=== PATIENT | female | born 1975 | race African-American/Black ===

== ENCOUNTER 2016-12-03 11:21 | Inpatient (IN) | payer MEDICARE, OTHER ==
--- NOTE | ~2016-12-03 | CR72 ---
[facility] A Service of [facility] & [facility] RADIOLOGY TEXT RESULTS PATIENT: DAVONTE HUBER LOCATION: [address] : [birth year] UNIT #: [id number] AGE: [address]: Quincy Neely MD SEX: F ORDER DR: [id number] [facility] [address] [place], [place] [address] [id number] I MR#: [id number] Acc #: [id number] NAME: DAVONTE HUBER : 1975 SEX: F STUDY DATE/TIME: 12/05/2016 4:58 UNIT: [facility] ROOM: [facility] STUDY DESCRIPTION: CR Chest Single View Portable Attending Physician: May Ruiz M.D. Ordering Physician: Sofiya Pineda M.D. Primary Care Physician: George Huynh M.D. MEDICAL IMAGING REPORT This report is preliminary unless electronic signature is present EXAM AP portable chest DATE: 12/05/2016 at 04:58 HISTORY 41-year-old female with shortness of breath and lethargy, on the ventilator. Symptoms have been presents since 12/03/2016 COMPARISON AP portable chest 12/04/2016 FINDINGS Low-volume inspiration. Suspected mild right basilar atelectasis. No dense consolidation. No definite pleural effusion or pneumothorax. ET tube, right chest tube, right subclavian approach central line appear unchanged in position. Heart size is stable. Discontinuous presumed VP PLATFORMS shunt in the right lower neck, unchanged from multiple prior studies. Thoracolumbar scoliosis with bilateral Bryant charli fusion changes. IMPRESSION 1. Development of mild right basilar atelectasis or infiltrate. No dense consolidations. 2. No visible pneumothorax. Dictated by... Iveth Goyal M.D. THIS IS AN ELECTRONICALLY VERIFIED REPORT Ievth Goyal M.D. at 12/06/2016 9:59 PM [facility]/martin TD: 12/05/2016 08:35 [facility] A Service of [facility] & [facility] RADIOLOGY TEXT RESULTS PATIENT: DAVONTE HUBER LOCATION: [facility]3-14 : [birth year] UNIT #: [id number] AGE: [address]: Quincy Neely MD SEX: F ORDER DR: MAL #: [id number] MEDICAL IMAGING REPORT Page 1 of 1 COPY
--- NOTE | ~2016-12-03 | FU ---
[facility] Nutrition Therapy DATE: 12/09/16 Patient: DAVONTE HUBER Physician: KASSIE Address: [address] [place] [address] Room/Bed: [address], Zip: [place] [address] Admit Date: 12/03/16 Date of : [birth year] Height: 4 9 Weight: 44 20 NUTRITION MONITORING/FOLLOW-UP: Reason: Enteral nutrition follow-up Admitting Dx: 41 y/o female admitted with acute renal failure, weakness, sepsis Anthropometrics: Ht: 57", admission wt: 28.5 kg, current wt: 20 kg (12/09, accurate?), BMI: 13.6 (underweight; based on admission wt), adjusted IBW: 38.7, 74% IBW Labs: Glucose 137, AST 163 (12/05), ALT 99 (12/05), lytes WNL Meds: Thiamine HCL, MVI with minerals, Bisacodyl, Mg/K, Pepcid, Vitamin D, Nacl I&O's: 1283/2400, last BM 12/03 (diarrhea) Skin: R chest tube and PEG sites, edema BUE 1+ Estimated Nutrition Needs: 2064-1206 kcals per day (35-40 kcals/kg adjusted IBW) 58-77 g protein per day (1.5-2.0 g/kg adjusted IBW) Fluids consistent with kcal needs or per MD Assessment: Chart reviewed, events noted. Patient failed wean yesterday, remains intubated, not following commands but does withdraw to pain, still working on DNR status. [place] referral in place. Patient is receiving enteral nutrition via PEG with Jevity 1.5 @ 40 ml/hr, 77% goal volume given past 24 hours per pump history. RN unsure if patient is receiving daily Prostat- RN to check chart to see once MD finished with it. See nutrition goals and dx with recs as stated below, will continue to follow hospital course. Dx: Severe PCM r/t increased nutrient needs, PMH AEB BMI 13.6, 74% IBW, 21% weight loss in 6 months - ACTIVE Intervention: Add daily Prostat if not ordered, continue current EN regimen Monitoring, Evaluation and Goals: 1. EN to provide > 80% goal volume x 24 hrs - IN PROGRESS (EN provided 77% past 24 hrs) 2. Improvement in labs - MET 3. Prevent unintentional weight loss/promote gradual gain - NOT MET, IN PROGRESS 4. Skin WNL - MET New goals: 1. EN to provide > 80% goal volume x 24 hrs. [facility] Nutrition Therapy DATE: 12/09/16 Patient: DAVONTE HUBER Physician: KASSIE Address: [address] [place] [address] Room/Bed: [address], Zip: [place] [address] Admit Date: 12/03/16 Date of : [birth year] Height: 4 9 Weight: 44 20 2. Gradual weight gain towards a healthy BMI range. 3. Glucose, lytes will remain WNL. Recommendations: 1. Continue current enteral nutrition via PEG: Jevity 1.5 @ 40 ml/hr + 30 ml daily Prostat. Please order Prostat and give daily per tube if not ordered, as the patient needs this to meet increased protein needs. This nutrition regimen provides 1540 kcals, 76 g protein and 730 ml water. 2. If extubated advance to PO diet per LAB INSTRUCTOR only, continue enteral feeds until PO intake is consistently > 60% of meals. RD will follow to reassess enteral nutrition needs if PO diet is started. 3. Please obtain accurate weight and re-weigh q 3 days for monitoring purposes, as the patient is underweight. 4. Severe protein calorie malnutrition previously diagnosed by RD. Status: Moderate nutrition risk Respectfully, Tiffanie Cueto, DELMAR, LD [facility] cc: client file
--- NOTE | ~2016-12-03 | CR72 ---
[facility] A Service of [facility] & [facility] RADIOLOGY TEXT RESULTS PATIENT: DAVONTE HUBER LOCATION: [address] : [birth year] UNIT #: [id number] AGE: [address]: PILLO RUIZ MD SEX: F ORDER DR: [id number] [facility] [address] [place], [place] [address] [id number] I MR#: [id number] Acc #: [id number] NAME: DAVONTE HUBER : 1975 SEX: F STUDY DATE/TIME: 12/04/2016 12:33 UNIT: [facility] ROOM: [facility] STUDY DESCRIPTION: CR Chest Single View Portable Attending Physician: Pillo Ruiz M.D. Ordering Physician: Sofiya Pineda M.D. Primary Care Physician: George Huynh M.D. MEDICAL IMAGING REPORT This report is preliminary unless electronic signature is present EXAM Single view of the chest dated 12/04/2016 at 1233 hours COMPARISON Single view chest dated 12/04/2016 0352 hours. HISTORY Shortness of air for 2 days, weakness. SEMI. FINDINGS Single view of the chest was obtained. Patient rotation limits evaluation. Previously noted right mild pneumothorax is again noted and it appears to be slightly worse. It is an expiratory film. There is some partial collapse of the underlying right lung. No chest tubes are seen. The right subclavian approach catheter is probably in the region of the SVC. Patient rotation limits evaluation. Repeat x-ray with adequate positioning can help with further characterization. Left lung is probably well-aerated. Stable heart. Dictated by... Gabriel Diop M.D. THIS IS AN ELECTRONICALLY VERIFIED REPORT Gabriel Diop M.D. at 12/05/2016 3:22 PM CPR/aa TD: 12/04/2016 14:32 JOB #: [id number] MEDICAL IMAGING REPORT Page 1 of 1 COPY
--- NOTE | ~2016-12-03 | CT4 ---
[facility] A Service of [facility] & [facility] RADIOLOGY TEXT RESULTS PATIENT: DAVONTE HUBER LOCATION: [address] : [birth year] UNIT #: [id number] AGE: [address]: Adalid Beard MD SEX: F ORDER DR: [id number] [facility] [address] [place], [place] [address] [id number] I MR#: [id number] Acc #: [id number] NAME: DAVONTE HUBER : 1975 SEX: F STUDY DATE/TIME: 12/03/2016 14:39 UNIT: [facility] ROOM: [facility] STUDY DESCRIPTION: CT Abd and Pelv Wo Cont Attending Physician: May Ruiz M.D. Ordering Physician: Alonzo Arreola M.D. Primary Care Physician: George Huynh M.D. MEDICAL IMAGING REPORT This report is preliminary unless electronic signature is present EXAM CT of abdomen and pelvis without IV contrast. COMPARISON May 26, 2011. INDICATION 41-year-old female with diarrhea for 4 days. Sepsis. TECHNIQUE This CT exam was performed with one or more of the following radiation dose reduction techniques: automatic exposure control, adjustment of mA and/or kV according to patient size, and iterative reconstruction. FINDINGS Axial CT imaging of the abdomen and pelvis was performed without IV contrast. Coronal and sagittal reformats were constructed. Lack of IV contrast limits evaluation of adenopathy, vasculature and viscera. There is marked osteopenia with stable thoracolumbar scoliosis. Thoracolumbar stabilization rods are incompletely included. There are associated cerclage wires at multiple levels. No evidence of hardware complication is seen. Stable chronic dysmorphic appearance of the right femoral head. No evidence of hip dislocation. No acute fractures or suspicious osseous lesions. Lumbar spine has an appearance most consistent with longstanding immobility. Patient is likely not weightbearing. As compared to April 2011, there are increased bronchoalveolar and tree-in-bud opacities in the right middle and lower lobes concerning for possible aspiration and/or bronchopneumonia. There are more faint tree-in-bud ground-glass opacities in the posterior basilar segment left lower lobe. Ongoing aspiration cannot be excluded. Evaluation of the intraabdominal contents is limited by lack of IV and oral contrast and lack of mesenteric STS. [facility] A Service of [facility] & [facility] RADIOLOGY TEXT RESULTS PATIENT: DAVONTE HUBER LOCATION: [facility]3-14 : [birth year] UNIT #: [id number] AGE: [address]: Adalid Beard MD SEX: F ORDER DR: santi. There is a percutaneous gastrostomy tube versus percutaneous jejunostomy tube. This is actually favored to be within the stomach. Correlation with the patient's procedural history is recommended. There is no evidence of mechanical bowel obstruction. There is a large colonic stool burden with gaseous distension of the transverse colon. Rectal tube is in place. Urinary bladder is fluid distended, but otherwise, unremarkable. Ventriculoperitoneal shunt is incompletely imaged. Shunt tubing terminates in the left abdomen and has migrated from May 26, 2011. No convincing evidence of CSF-shyam on the current exam. Gallbladder is fluid distended. No convincing evidence of acute cholecystitis is seen on this exam. The pancreas is not well visualized. Similarly the spleen is not well seen but is not favored to be present and diminutive in size. There is a large right-sided renal cyst measuring up to approximately 3.5 cm. There are bilateral nonobstructive renal calculi. No convincing evidence of ureteral calculus is seen although the ureters are well evaluated on this exam. Appears to be thickening of the sigmoid colon just above the rectal tube. Abdominal aorta is not well visualized on this exam. Similarly evaluation for adenopathy is limited. No evidence of a pneumoperitoneum or pneumatosis intestinalis on the current exam. IMPRESSION 1. Markedly limited evaluation of the abdomen and pelvis due to lack of IV and oral contrast as well as lack of mesenteric fat and streak artifact from thoracolumbar spinal hardware. The abdominal aorta, pancreas, adrenal glands, spleen, uterus, adnexa are not well evaluated. Evaluation for adenopathy is also limited. 2. Distension of the gallbladder without convincing evidence of acute cholecystitis. 3. Bilateral nonobstructive renal calculi. No evidence of obstructive uropathy is seen on this exam again, although evaluation of the ureters is limited. No evidence of ureteral calculus. 4. Marked fluid distension of urinary bladder. Consider Thomson catheterization. 5. Rectal tube in place with thickening of the upstream sigmoid colon, possibly reactive but an acute colitis cannot be excluded. There is otherwise a large colonic stool burden without evidence of mechanical bowel obstruction. 6. Findings most consistent with bronchopneumonia in the right middle and lower lobes as well as tree-in-bud opacity seen in the left lower lobe. Ongoing aspiration cannot be excluded. No evidence of pleural effusion. 7. Percutaneous enteric tube is noted, likely within the stomach but conceivably this could represent a percutaneous jejunostomy. Again, abdominal contents are difficult to evaluate on this study. If detailed evaluation of the bowel is desired, 1 could consider placing an NG tube and administering contrast to further characterize the bowel. Also, if definitive evaluation of the remainder of the abdomen and pelvis is desired, IV contrast should be administered. 8. Marked scoliosis of the thoracolumbar spine. No evidence of spinal STS. [facility] A Service of [facility] RADIOLOGY TEXT RESULTS PATIENT: DAVONTE HUBER LOCATION: [facility] CICCU3-14 : [birth year] UNIT #: [id number] AGE: [address]: Adalid Beard MD SEX: F ORDER DR: stabilization hardware complication. 9. REPOSSESSION AGENT shunt is incompletely imaged. No convincing evidence of CSF-shyam is seen. Dictated by... Christiano Rush M.D. THIS IS AN ELECTRONICALLY VERIFIED REPORT Christiano Rush M.D. at 12/07/2016 4:30 PM Yusuf TD: 12/03/2016 16:12 JOB #: [id number] MEDICAL IMAGING REPORT Page 1 of 1 COPY
--- NOTE | ~2016-12-03 | CR72 ---
[facility] A Service of [facility] & [facility] RADIOLOGY TEXT RESULTS PATIENT: DAVONTE HUBER LOCATION: [address] : [birth year] UNIT #: [id number] AGE: [address]: PILLO RUIZ MD SEX: F ORDER DR: [id number] [facility] [address] [place], [place] [address] [id number] I MR#: [id number] Acc #: [id number] NAME: DAVONTE HUBER : 1975 SEX: F STUDY DATE/TIME: 12/04/2016 16:32 UNIT: [facility] ROOM: [facility] STUDY DESCRIPTION: CR Chest Single View Portable Attending Physician: Pillo Ruiz M.D. Ordering Physician: Sofiya Pineda M.D. Primary Care Physician: George Huynh M.D. MEDICAL IMAGING REPORT This report is preliminary unless electronic signature is present EXAM Portable chest HISTORY Pneumothorax. Chest tube placement. FINDINGS Right chest tube has been placed since earlier today and the right pneumothorax has been evacuated. The chest tube tip overlies the right apex. Remainder of the chest is stable. Low lung volumes. No focal infiltrates. Dictated by... Paresh Hall M.D. THIS IS AN ELECTRONICALLY VERIFIED REPORT Paresh Hall M.D. at 12/04/2016 10:59 PM DFL/psc TD: 12/04/2016 20:32 JOB #: [id number] MEDICAL IMAGING REPORT Page 1 of 1 COPY
--- NOTE | ~2016-12-03 | EKG ---
PATIENT: DAVONTE HUBER UNIT #: [id number] Ventricular Rate: 100 BPM Atrial Rate: 100 BPM P-R Interval: 164 ms QRS Duration: 78 ms Q-T Interval: 316 ms QTC Calculation(Bezet): 407 ms P Lund: 19 degrees Calculated R Lund: 65 degrees Calculated T Lund: 7 degrees Diagnosis Line: Normal sinus rhythm Diagnosis Line: Normal ECG Diagnosis Line: When compared with ECG of 21-MAY-2016 02:56, Diagnosis Line: rate slower Diagnosis Line: Confirmed by DORIS NOEL MD ([id number]) on Diagnosis Line: 12/04/2016 8:51:51 AM INTERPRETING MD: JOHAN
--- NOTE | ~2016-12-03 | OR ---
Unit #: [id number] #: [id number] Patient: DAVONTE HUBER [id number] [address] [place], [place] [address] [id number] I MR#: [id number] NAME: DAVONTE HUBER ROOM: [facility] Date of Procedure: 12/07/2016 Admission Date: 12/03/2016 Surgeon: Davy Ruiz M.D. : 1975 Attending Physician: Adalid Beard M.D. Primary Care Physician: George Huynh M.D. PROCEDURE OPERATIVE NOTE PROCEDURE PERFORMED Diagnostic and therapeutic bronchoscopy with bronchial washing. INDICATION FOR PROCEDURE Complete right lung collapse and mucus plug. PREOPERATIVE DIAGNOSES 1. Right-sided pneumothorax. 2. Pneumonia. 3. Respiratory distress. FINDINGS Large, thin, orangish mucus plug in the right main bronchus which was flushed and aspirated with normal saline flushes. PREMEDICATION None. DESCRIPTION OF PROCEDURE An informed consent was obtained from the medical power of intertype operator after explaining the benefit and risk of this procedure. The bronchoscope was advanced through the ET tube and immediately into the right main bronchus. Next, 10 mL of 1% lidocaine was instilled and then bronchoscope was wedged at the level of the right main bronchus and multiple normal saline flushes were given and then a large thin mucus plug was aspirated out which will be sent for cytology and culture. The right upper lobe, right middle lobe, and right lower lobe were examined which appeared normal with no erythema or endobronchial masses. Thin secretion was aspirated from all the right side. The bronchoscope was retracted and then re-advanced into the left main bronchus and the left upper lobe, lingula and left lower lobe were examined which appeared normal except for a thin secretion which was aspirated. The bronchoscope was retracted out then and patient tolerated her procedure well with no immediate complications. Dictated by... Davy Ruiz M.D. EA/ethan Unit #: [id number] #: [id number] Patient: DAVONTE HUBER TD: 12/07/2016 11:35 JOB #: [id number] PROCEDURE OPERATIVE NOTE Page 1 of 1 X DAVY BEGUM MD PROCEDURE OPERATIVE NOTE
--- NOTE | ~2016-12-03 | HP ---
Unit #: [id number] #: [id number] Patient: DAVONTE HUBER [id number] [address] [place], [place] [address] [id number] I MR#: [id number] NAME: DAVONTE HUBER ROOM: [facility] Age: 41 Sex: F Admission Date: 12/03/2016 : 1975 Attending Physician: May Ruiz M.D. Primary Care Physician: George Huynh M.D. HISTORY AND PHYSICAL CHIEF COMPLAINT Weakness. HISTORY OF PRESENT ILLNESS The patient is a 41-year-old female with a past medical history of mental retardation, cerebral palsy, seizure disorder, hydrocephalus, pica, hyponatremia, torticollis and gastroesophageal reflux disease. Brought to the emergency room with weakness. The patient is nonverbal, and no one from the adult daycare is present to give more history. The patient is found to have decreased mental status per the records. The patient was found to have sepsis with lactate of 3.6 and potassium of 6.2, UTI and bronchopneumonia. The patient is being admitted for the above reasons. The patient was found to be hypotensive at the time of arrival with blood pressure in the range of 73. The patient received 2 liters of fluid, but blood pressure is still running in the 80s, and the patient appears to be drowning in fluid. The patient was initially admitted to the floor and is being moved to the ICU for higher level of care. No further history is available. PAST MEDICAL HISTORY History of mental retardation, cerebral palsy, seizure disorder, hydrocephalus status post ODD PIECE CHECKER shunt, pica, torticollis, gastroesophageal reflux disease. PAST SURGICAL HISTORY ODD PIECE CHECKER shunt, PEG tube placement. SOCIAL HISTORY No tobacco, alcohol. The patient is immobile. She lives with a care provider. FAMILY HISTORY Unable to obtain. ALLERGIES No known drug allergies. HOME MEDICATIONS From the record, abdominal binder, diet with pureed consistency, Flexeril, Pepcid, cyclobenzaprine, baclofen, vitamin, Zonegran, Metoprolol, multivitamin. REVIEW OF SYSTEMS Unable to obtain. Unit #: [id number] #: [id number] Patient: DAVONTE HUBER PHYSICAL EXAMINATION GENERAL: The patient is an female who is lethargic, unable to provide any history. VITALS: Temperature is 98.6, pulse 101, respirations 20, blood pressure 73/47, satting 94% on 2 liters. HEENT: Head atraumatic. Mucous membranes are dry. NECK: Supple. LUNGS: Positive for rales and crackles. HEART: Regular rhythm. Tachycardic. ABDOMEN: Soft. Positive for PEG tube placement. EXTREMITIES: Contracted and atrophied. NEUROLOGIC: Unable to obtain. DIAGNOSTIC STUDIES LAB DATA: Glucose 156, BUN 60, creatinine 2.2, sodium 144, potassium 6.2, chloride 115, bicarb 16, calcium 8.9, total protein 7.2, albumin 3.5, AST 60, ALT 50, alkaline phosphatase 70, lactic acid 3.6. INR is 1.1. WBC 5.5, hemoglobin 14.6, hematocrit 47.3, platelets 227. UA shows 2+ leukocyte esterase, nitrite positive and 10-25 urine RBCs and urine bacteria 1+. IMAGING: Chest x-ray, single view of the chest was obtained. Lungs appear to be well aerated. The heart and mediastinum are stable. Postoperative changes are noted in the thoracolumbar spine with presence of hardware. Parallel to the spine in the right lateral aspect vertically, linear opacity is noted, which extends all the way up towards the right lateral neck soft tissues. It was also seen on the previous study and could represent chronic dystrophic calcification. CT of the chest and abdomen shows that the patient has bronchopneumonia in the right middle and lower lobes and reactive distention of the bowel, gallbladder distention and cannot exclude infectious etiology due to lack of contrast. ASSESSMENT 1. Sepsis. 2. Bronchopneumonia. 3. UTI. 4. Hyperkalemia. PLAN Plan to admit the patient to the ICU. Patient will be sepsis protocol and will start with broad-spectrum IV antibiotics with Zosyn and one dose of vancomycin. Patient will have consultation with renal for the hyperkalemia. Patient received insulin, D50, bicarb and calcium in the emergency room. Patient will have pulmonary/critical care consult with Dr. Pineda. Will obtain more records from the adult daycare. Further recommendations will follow as more lab results are available. Dictated by Guilherme Coleman Unit #: [id number] #: [id number] Patient: DAVONTE HUBER TD: 12/04/2016 08:20 JOB #: [id number] HISTORY AND PHYSICAL Page 1 of 1 X X HISTORY AND PHYSICAL
--- NOTE | ~2016-12-03 | CO ---
Unit #: [id number] #: [id number] Patient: LAUREN HUBER [id number] [address] [place], [place] [address] [id number] I MR#: [id number] NAME: LAUREN HUBER ROOM: [facility]3 Age: 41 Sex: F Admission Date: 12/03/2016 : 1975 Attending Physician: May Ruiz M.D. Primary Care Physician: George Huynh M.D. Consultation Date: 12/03/2016 CONSULTATION REPORT REASON FOR CONSULT Renal failure, hyperkalemia. Thank you very much for asking us to see this patient in consultation. HISTORY OF PRESENT ILLNESS Ms. Lauren Huber is a 41-year-old female, who presented to the hospital apparently with decreasing mental status. Best I can tell, the patient has multiple medical issues as well outlined below, unable to respond and answer any questions, subsequently was intubated as well. So, I really do not have any history on what she initially got here except for apparently according to the ER sheet, she was dropped off by whoever takes care of her for weakness. The patient again currently has decreased response, intubated on the vent. I was asked to see the patient due to increasing BUN and creatinine and potassium. BUN of 60, creatinine of 2.2, and a potassium of 6.2. The patient was noted in 05/2016 to have a creatinine of 0.5. The patient was admitted here for possible urosepsis, and of course, acute renal failure, hyperkalemia and respiratory failure. PAST MEDICAL HISTORY The patient has a history of acute renal failure and hyperkalemia in the past in 2007 and in 2010. History of cerebral palsy, history of quadriplegia, history of mental retardation, history of muscular dystrophy, history of seizure disorder, history of STRAP SEWER shunt in the head, history of gastroesophageal reflux disease, history of right femur fracture in the past, history of hyponatremia in the past, history of tachycardias in the past. SOCIAL HISTORY She lives in some sort of retirement, unsure at this point in time. I assume she does not smoke or drink, but again unable to obtain. ALLERGIES Listed as no known drug allergies. MEDICATIONS Include Flexeril 5 mg one tablet t.i.d., Pepcid 20 mg b.i.d. She is on water 150 mL b.i.d. Jevity as a tube feed, vitamin D, baclofen 20 mg a day, metoprolol 25 mg half tablet b.i.d. FAMILY HISTORY Unable to obtain. Unit #: [id number] #: [id number] Patient: LAUREN HUBER REVIEW OF SYSTEMS Unable to obtain. PHYSICAL EXAMINATION GENERAL: She is currently now intubated, decreased response. VITAL SIGNS: Her T-max here is 98.9, pulse is anywhere from 99 to 105, her blood pressure 73 to 139. She has received 2 L normal saline bolus. HEENT: Her pupils are equal and reactive to light. She is orally intubated. NECK: Supple. She does not have a central line in her neck. CARDIAC: She is tachycardic without a rub. No S3 or S4. LUNGS: Have occasional rhonchi only. ABDOMEN: Bowel sounds are positive. She has a feeding tube present. EXTREMITIES: Contracted. No lower extremity swelling. NEUROLOGIC: Again, decreased responsiveness. : Deferred. SKIN: No acute rashes. DIAGNOSTIC STUDIES IMAGING STUDIES: She had a chest x-ray here that showed lungs appeared to be well hydrated. No infiltrates or failure noted. LABORATORY RESULTS: ABG showed a pH of 7.307, pCO2 of 37, pO2 of 85, initially on 2 L. Her glucose 156, BUN 60, creatinine 2.2, potassium 6.2, bicarb is 16, calcium is 8.9, AST 60, ALT is 50. Lactic acid is 3.6. Her INR is 1.1. Her white count 5500, hemoglobin is 14.6, platelets 227,000. UA shows a specific gravity of 1.022, trace protein, nitrite positive, 10 to 25 rbc's, 2 to 5 wbc's, 1+ bacteria. Blood cultures have been ordered and appeared to be pending. Urine culture pending. CURRENT MEDICATIONS Include Zosyn, phenobarbital, Pepcid, Lovenox, Tylenol, IV fluids. ASSESSMENT/PLAN 1. Acute kidney injury. This lady has increased BUN and creatinine, again certainly probably multifactorial. She does not appear to have any volume on board and certainly could be volume depleted is on top of possible sepsis, urosepsis versus other. I certainly agree with IV fluids. We will adjust her IV fluids to have some bicarb due to her acidosis. She did receive medical management for hyperkalemia in the ER. We will order a renal ultrasound for tomorrow. We will check urine eosinophils, urine sodium. Follow I's and O's. Place [facility] if not already ordered, and we will intermittently check and follow. Apparently, the patient is a [facility]herty of the [facility], and according to the person on the phone over the weekend, the patient is to have everything done. 2. Hyperkalemia. The patient with increased potassium secondary to acute renal failure, acidosis. Again, we will put the patient on IV bicarb drip. The patient again has received medical management. I have ordered a stat BMP to be done as soon as a central line is confirmed and we can use it, and hopefully just medical management will be able to treat this hyperkalemia. If not, then we will have to proceed with dialysis. 3. Urinary tract infection, possible urosepsis. 4. Respiratory failure. 5. Cerebral palsy, mental retardation. 6. [facility]. Dictated by... Unit #: [id number] #: [id number] Patient: CECILELAURENGuilherme Townsend/kimmy TD: 12/04/2016 12:37 JOB #: [id number] CONSULTATION REPORT Page 1 of 1 X Michael Jin MD X CONSULTATION REPORT
--- NOTE | ~2016-12-03 | OR ---
Unit #: [id number] #: [id number] Patient: DAVONTE HUBER [id number] [address] [place], [place] [address] [id number] I MR#: [id number] NAME: DAVONTE HUBER ROOM: [facility] Date of Procedure: 12/03/2016 Admission Date: 12/03/2016 Surgeon: Sofiya Pineda M.D. : 1975 Attending Physician: May Ruiz M.D. Primary Care Physician: George Huynh M.D. PROCEDURE OPERATIVE NOTE PREOPERATIVE DIAGNOSIS Shock, vascular access. POSTPROCEDURE DIAGNOSIS Shock, vascular access. PROCEDURE PERFORMED Right subclavian central venous catheter placement. INDICATIONS Shock. Vascular access. DETAIL OF PROCEDURE After placing the patient in the appropriate position, we prepped the right side of the chest with ChloraPrep with modified Seldinger technique. A triple lumen central venous catheter placed in the right subclavian vein. No complication happened. The patient tolerated the procedure very well. Dictated by... Guilherme Delacruz TD: 12/04/2016 12:45 JOB #: [id number] PROCEDURE OPERATIVE NOTE Page 1 of 1 X Sofiya Pineda MD PROCEDURE OPERATIVE NOTE
--- NOTE | ~2016-12-03 | OR ---
Unit #: [id number] #: [id number] Patient: DAVONTE HUBER [id number] [address] [place], [place] [address] [id number] I MR#: [id number] NAME: DAVONTE HUBER ROOM: [facility] Date of Procedure: 12/04/2016 Admission Date: 12/03/2016 Surgeon: Sofiya Pineda M.D. : 1975 Attending Physician: May Ruiz M.D. Primary Care Physician: George Huynh M.D. PROCEDURE OPERATIVE NOTE PROCEDURE PERFORMED Right-sided chest tube placement. INDICATION Pneumothorax. PREPROCEDURAL DIAGNOSIS Pneumothorax. POSTPROCEDURAL DIAGNOSIS Pneumothorax. DETAIL OF THE PROCEDURE After placing patient in appropriate position, right side of the chest prepped with ChloraPrep. Five mL lidocaine used for local anesthesia, and a small 3-cm incision made on the skin over the right fourth intercostal space in front of the anterior axillary line. With blunt dissection, the pleural space was entered and a size 20 [place]an chest tube placed in the right pleural cavity. A gush of air came out and chest tube was connected to suction. Patient tolerated the procedure very well. It was secured with silk suture in place. Dictated by... Guilherme Delacruz TD: 12/04/2016 18:43 JOB #: [id number] PROCEDURE OPERATIVE NOTE Page 1 of 1 X Sofiya Pineda MD X PROCEDURE OPERATIVE NOTE
--- NOTE | ~2016-12-03 | CR72 ---
[facility] A Service of [facility] & [facility] RADIOLOGY TEXT RESULTS PATIENT: DAVONTE HUBER LOCATION: [address] : [birth year] UNIT #: [id number] AGE: [address]: Adalid Beard MD SEX: F ORDER DR: [id number] [facility] [address] [facility]. [place], [place] [address] [id number] I MR#: [id number] Acc #: [id number] NAME: DAVONTE HUBER : 1975 SEX: F STUDY DATE/TIME: 12/03/2016 20:37 UNIT: [facility] ROOM: [facility] STUDY DESCRIPTION: CR Chest Single View Portable Attending Physician: Adalid Beard M.D. Ordering Physician: Ed Doctor [id number] [facility] Primary Care Physician: George Huynh M.D. MEDICAL IMAGING REPORT This report is preliminary unless electronic signature is present REVISED REPORT SEE ADDENDUM EXAM Portable AP view of the chest COMPARISON December 03, 2016 at 12:09 p.m. and May 21, 2016 at 03:51 p.m. INDICATION 41-year-old female. Central line placement. FINDINGS There is abnormal configuration of a right subclavian catheter, with the tip terminating over the expected location of the ventricle in the left lower chest. This could reflect an arterial line but is thought more likely be within the subclavian vein and terminating within the right ventricle. There also is a new endotracheal tube and the tip of which appears to be peaking into the right mainstem bronchus. There are increased band-like opacities in the right lung base favoring atelectasis. No evidence of pneumothorax or pleural effusion. Heart size is within normal limits. There appears to be disruption of a PICK REMOVER shunt catheter within the right lower neck. Clinical correlation recommended. This has a stable appearance as compared to May 21, 2016. Thoracolumbar stabilization rods and cerclage wires appear grossly stable, incompletely imaged. Similar appearing gas distended bowel loops in the upper abdomen as compared to May 2016. IMPRESSION 1. Low riding endotracheal tube which is favored to project approximately 2 cm in the right mainstem bronchus. 2. Abnormal position of right subclavian catheter with the tip terminating over the ventricle. This may represent a central venous STS. [facility] A Service of [facility] & [facility] RADIOLOGY TEXT RESULTS PATIENT: DAVONTE HUBER LOCATION: [facility]3 CICCU3-14 : [birth year] UNIT #: [id number] AGE: [address]: Adalid Beard MD SEX: F ORDER DR: line which is favored. Ectopic arterial position cannot entirely be excluded. Tip likely terminates in the right ventricle and repositioning is recommended. 3. Mildly increased opacities in the right lung base favoring atelectasis. 4. Courtesy call was placed to the patient's nurse to inform of the malpositioned central venous catheter and endotracheal tube. Mentioned in the body of the report there is also discontinuity of a PICK REMOVER shunt catheter in the right lower neck, appearance of which is not significantly changed from May 21, 2016. Clinical correlation recommended. Dictated by... Christiano Rush M.D. THIS IS AN ELECTRONICALLY VERIFIED REPORT Christiano Ruhs M.D. at 12/07/2016 2:25 PM Jemal TD: 12/04/2016 01:29 JOB #: [id number] ADDENDUM Lino nurse caring for this patient was informed of the low-riding ET tube as well as a malpositioned, subclavian catheter and the suspicion of a fractured PICK REMOVER shunt tubing in the right neck. He acknowledged receipt. Dictated by... Christiano Rush M.D. THIS IS AN ELECTRONICALLY VERIFIED REPORT Christiano Rush M.D. at 12/08/2016 10:09 AM Jemal TD: 12/03/2016 23:31 JOB #: [id number] MEDICAL IMAGING REPORT Page 1 of 1 COPY
--- NOTE | ~2016-12-03 | CR72 ---
[facility] A Service of [facility] & [facility] RADIOLOGY TEXT RESULTS PATIENT: DAVONTE HUBER LOCATION: [address] : [birth year] UNIT #: [id number] AGE: [address]: Adalid Beard MD SEX: F ORDER DR: [id number] [facility] [address] [facility]. [place], [place] [address] [id number] I MR#: [id number] Acc #: [id number] NAME: DAVONTE HUBER : 1975 SEX: F STUDY DATE/TIME: 12/09/2016 3:43 UNIT: [facility] ROOM: [facility] STUDY DESCRIPTION: CR Chest Single View Portable Attending Physician: Adalid Beard M.D. Ordering Physician: Meng Duque M.D. Primary Care Physician: George Huynh M.D. MEDICAL IMAGING REPORT This report is preliminary unless electronic signature is present EXAM AP portable chest 12/09/2016 HISTORY Shortness of breath today. COMPARISON AP portable chest 12/08/2016 06:06. FINDINGS Right chest tube unchanged. Right apical lateral pneumothorax appears stable, particularly at its lateral margin. Scattered atelectatic type changes are present within the right ncv-dd-sdeca lung zone. Left lung appears relatively clear. Stable heart size. ET tube in mid-thoracic trachea. Right subclavian central line unchanged. Thoracolumbar fusion rods in place with scoliotic curvature. What appears to be some abandoned tubing from the patient's ventricular peritoneal shunt is seen within the right neck. IMPRESSION Right side pneumothorax appears stable compared to the previous study with scattered atelectatic changes in the right esd-ay-ycrhi lung zone. No significant change from prior. Dictated by... Iveth Goyal M.D. THIS IS AN ELECTRONICALLY VERIFIED REPORT Iveth Goyal M.D. at 12/14/2016 4:12 PM [facility]/suzie [facility] A Service of [facility] & [facility] RADIOLOGY TEXT RESULTS PATIENT: DAVONTE HUBER LOCATION: [facility]3 CICCU3-14 : [birth year] UNIT #: [id number] AGE: [address]: Adalid Beard MD SEX: F ORDER DR: TD: 12/09/2016 09:10 JOB #: [id number] MEDICAL IMAGING REPORT Page 1 of 1 COPY
--- NOTE | ~2016-12-03 | CR71 ---
[facility] A Service of [facility] & [facility] RADIOLOGY TEXT RESULTS PATIENT: DAVONTE HUBER LOCATION: [address]14 : [birth year] UNIT #: [id number] AGE: [address]: PILLO RUIZ MD SEX: F ORDER DR: [id number] [facility] [address] [place], [place] [address] [id number] I MR#: [id number] Acc #: [id number] NAME: DAVONTE HUBER : 1975 SEX: F STUDY DATE/TIME: 12/04/2016 3:52 UNIT: [facility] ROOM: [facility] STUDY DESCRIPTION: CR Chest Single View Attending Physician: Pillo Ruiz M.D. Ordering Physician: Sofiya Pineda M.D. Primary Care Physician: George Huynh M.D. MEDICAL IMAGING REPORT This report is preliminary unless electronic signature is present EXAM AP portable chest, 12/04/2016 at 03:52 HISTORY Shortness of breath, lethargic on the ventilator. Symptoms began 12/03/2016. History of seizures, mitral regurgitation. COMPARISON AP portable chest, 12/03/2016 FINDINGS The right lateral pneumothorax appears unchanged in size compared to 12/03/2016. Ill-defined right basilar and medial left basilar infiltrates are again noted. There is improved aeration in the left lower lobe compared to yesterday's study. Patient is rotated toward the left. The degree of cardiac enlargement is thought to be stable. ET tube tip projects about 1.0 cm above the ravin. Right IJ central line tip extends to the mid to upper right atrial level. Bilateral thoracolumbar fusion charli changes are noted. Discontinuity of the patient's SALES CORRESPONDENCE CLERK shunt in the right neck again noted. IMPRESSION 1. The patient's right side pneumothorax remains small and unchanged compared to 12/03/2016. 2. Infiltrates within the right base and medial left base appear unchanged. Dictated by... Iveth Goyal M.D. THIS IS AN ELECTRONICALLY VERIFIED REPORT Iveth Goyal M.D. at 12/04/2016 10:02 PM ANDRES/wendi [facility]. [facility] A Service of [facility] & [facility] RADIOLOGY TEXT RESULTS PATIENT: DAVONTE HUBER LOCATION: [facility]3 CICCU3-14 : [birth year] UNIT #: [id number] AGE: [address]: PILLO RUIZ MD SEX: F ORDER DR: TD: 12/04/2016 09:39 JOB #: [id number] MEDICAL IMAGING REPORT Page 1 of 1 COPY
--- NOTE | ~2016-12-03 | A ---
[facility] Nutrition Therapy DATE: 12/05/16 Patient: DAVONTE HUBER Physician: KASSIE Address: [address] [place] [address] Room/Bed: [address], Zip: [place] [address] Admit Date: 12/03/16 Date of : [birth year] Height: 4 9 Weight: 66 29.93 NUTRITIONAL ASSESSMENT: REASON: 1 point nutrition screen risk RE: Home TF and consult RE: Start TF per RD recommendations 41 yo female admitted for weakness, sepsis, PNA, Acute renal failure PMH: CP, MR, contractures, seizure disorder, Pica, hyponatremia, GERD, PEG, hydrocephalus Anthropometrics: Ht: 4'9" Wt: 28.5 kg BMI: 13.6 Adjusted IBW: 38.7 kg, 74% IBW Labs: Creat 0.5 Ca++ 7.5 Alb 2.3 AST 163 ALT 99 Phos 1.7 Meds: MgSO4, KCl, D5%, sodium bicarbonate, versed, pepcid, bisacodyl, vitamin D, MVI I/O & Bowel function: 2453/2370, last BM 12/03, PEG present upon admission Skin Integrity: Scars scattered Edema: None noted Estimated Nutrition Needs: 3977-1548 kcals (35-40 kcals/kg adjusted IBW) 58-77 grams protein (1.5-2.0 grams/kg adjusted IBW) Assessment: Chart reviewed, events noted. Pt is intubated in the ICU, admitted with weakness, sepsis, PNA, acute renal failure now s/p chest tube placement. Per previous admission RD assessment from May 2016, the pt previously had a PEG for supplemental nutrition and was also eating PO; however, during that admission CALIBRATION CHECKER recommended that the pt only receive nutrition via PEG. Per information in chart, the pt has been receiving bolus enteral nutrition with four cans of Jevity 1.5 per day. This is consistent with previous RD recommendations. notes that the pt has been eating pureed foods. RD could not find information on PO diet in chart, and no one is in the pt's room to discuss nutritional history. Of note, the pt has lost 7.5 kg (16.5#) since her last admission May 2016, indicating 21% weight loss in 6 months. This pt is at risk for refeeding syndrome with low Phos, low BMI and weight loss. Please see recommendations below. Dx: Severe protein calorie malnutrition RT increased nutrient needs, PMH AEB BMI 13.6, 74% IBW, 21% weight loss in 6 months. Intervention: [facility] Nutrition Therapy DATE: 12/05/16 Patient: DAVONTE HUBER Physician: KASSIE Address: [address] [place] [address] Room/Bed: [address], Zip: [place] [address] Admit Date: 12/03/16 Date of : [birth year] Height: 4 9 Weight: 66 29.93 1. Enteral nutrition Monitoring, Evaluation and Goals: 1. Enteral nutrition; initiate, provide 80% goal volume over the next 48 hrs 2. Improve labs: Creat, electrolytes (phos, Ca++), AST, ALT 3. Skin; prevent breakdown Recommendations: 1. Replete Phos to WNL prior to initiating enteral nutrition, as this pt is at risk for refeeding syndrome with low BMI, low phos, and 21% weight loss in 6 months. 2. Once medically feasible, start enteral nutrition at low rate with Jevity 1.5 @ 10 mL/hr. Increase by 10 mL q 12 hrs as tolerated to goal of 40 mL/hr. Once the pt is at goal rate, add 30 mL Prostat once daily to provide total: 1540 kcals/ 76 grams protein/ 730 mL *Suggesting 200 mL free H20 flushes QID or per MD orders 3. Monitor electrolyte and glucose levels closely due the pt's risk for refeeding syndrome. Pt is at severe nutritional risk. RD will follow hospital course. Respectfully, JEOVANY PIERCE RD, LD Food and Nutritional Services [facility] cc: client file
--- NOTE | ~2016-12-03 | CR72 ---
[facility] A Service of [facility] & [facility] RADIOLOGY TEXT RESULTS PATIENT: DAVONTE HUBER LOCATION: [address] : [birth year] UNIT #: [id number] AGE: [address]: Quincy Neely MD SEX: F ORDER DR: [id number] [facility] [address] [facility]. [place], [place] [address] [id number] I MR#: [id number] Acc #: [id number] NAME: DAVONTE HUBER : 1975 SEX: F STUDY DATE/TIME: 12/06/2016 4:40 UNIT: [facility] ROOM: [facility] STUDY DESCRIPTION: CR Chest Single View Portable Attending Physician: May Ruiz M.D. Ordering Physician: Meng Duque M.D. Primary Care Physician: George Huynh M.D. MEDICAL IMAGING REPORT This report is preliminary unless electronic signature is present EXAM AP portable chest 12/06/2016 04:40 HISTORY Respiratory failure. Symptoms have been present for 3 days. Additional history of cerebral palsy, mitral regurgitation and seizures. History of right pneumothorax with chest tube placement on 12/04/2016. COMPARISON AP portable chest 12/05/2016. FINDINGS Right chest tube is stable in position. No pneumothorax is visible. Right basilar airspace disease is unchanged. Left lung appears clear. Heart size is stable. Thoracolumbar scoliosis with Bryant charli fusion changes again noted. ET tube tip projects 2.2 cm above the ravin. Right subclavian approach central line extends to the upper right atrial level. IMPRESSION 1. Right chest tube is stable. No definite pneumothorax is seen. 2. Persistent patchy infiltrate within the right lower lobe without significant change from 1 day prior. Dictated by... Iveth Goyal M.D. THIS IS AN ELECTRONICALLY VERIFIED REPORT Iveth Goyal M.D. at 12/06/2016 9:58 PM ANDRES/suzie TD: 12/06/2016 06:31 JOB #: [id number] [facility] A Service of [facility] & [facility] RADIOLOGY TEXT RESULTS PATIENT: DAVONTE HUBER LOCATION: [facility]3-14 : [birth year] UNIT #: [id number] AGE: [address]: Quincy Neely MD SEX: F ORDER DR: MEDICAL IMAGING REPORT Page 1 of 1 COPY
--- NOTE | ~2016-12-03 | MAL ---
[facility] Nutrition Therapy DATE: 12/05/16 Patient: DAVONTE KOVACS CECILE Physician: KASSIE Address: [address] [address] Room/Bed: [address], Zip: [place] [address] Admit Date: 12/03/16 Date of : [birth year] Height: 4 9 Weight: 66 29.93 PHYSICAL MALNUTRITION ASSESSMENT Energy Intake, Chronic Illness Energy Intake, Social/Environmental Energy Intake Comment: Pt's intake prior to admission is unable to be determined, as no one is present in room to provide nutritional history. Based on the pt's weight loss, it is possible that the pt has not been receiving adequate nutrition. Weight Loss, Chronic Illness Severe: >10% past 6 months Weight Loss, Social/Environmental Severe: >10% past 6 months Weight Loss, Comment: Based on previous admission RD assessments and current weight, the pt has lost 7.5 kg since May 2016, indicating 21% weight loss in 6 months. Physical Findings Body Fat and Muscle Mass Moderate: (suggested) some loss of subqutaneous fat and/or muscle mass Physical Findings Functional Capacity Severe: (obvious) bedridden or otherwise significantly reduced functional capacity Physical Findings Comment: Pt is bedridden with reduced functional capacity, reduced community planning technician strength and likely reduced muscle mass. Pt is thin with minimal muscle definition. Dietitian Malnutrition Assessment Score: Severe protein calorie malnutrition Malnutrition Survey Results: Malnutrition identified Malnutrition Etiology Summary: Chronic illness severe Social/Environmental moderate Malnutrition Survey Comment: See full RD nutrition assessment for additional information. Respectfully, [facility] Nutrition Therapy DATE: 12/05/16 Patient: DAVONTE KOVACS CECILE Physician: AKSSIE Address: [address] [facility] Room/Bed: [address], Zip: [place] [address] Admit Date: 12/03/16 Date of : [birth year] Height: 4 9 Weight: [address], LD Food and Nutritional Services [facility] cc: client file
--- NOTE | ~2016-12-03 | OR ---
Unit #: [id number] #: [id number] Patient: DAVONTE HUBER [id number] [address] [place], [place] [address] [id number] I MR#: [id number] NAME: DAVONTE HUBER ROOM: [facility] Date of Procedure: 12/05/2016 Admission Date: 12/03/2016 Surgeon: Jaswant Figueroa M.D. : 1975 Attending Physician: Quincy Neely M.D. Primary Care Physician: George Huyhn M.D. OPERATIVE REPORT PREOPERATIVE DIAGNOSIS Failure of percutaneous endoscopic gastrostomy tube. POSTOPERATIVE DIAGNOSIS Failure of percutaneous endoscopic gastrostomy tube. PROCEDURE PERFORMED Bedside replacement of gastrostomy tube. INDICATIONS FOR PROCEDURE A 41-year-old female admitted to the ICU with respiratory failure and pneumonia. G-tube collapsed when trying to aspirate. It was dirty and losing wall integrity. DESCRIPTION OF PROCEDURE The patient was seen at the bedside. She was sedated on the ventilator. The previously placed PEG tube was removed from the stoma. The stoma was inspected. It was intact with no granulation tissue or evidence of infection. A 24-Greek replacement tube was able to be passed into the lumen of the stomach. The balloon was blown up, tube was flushed with return of gastric contents. Bacitracin ointment, sterile gauze was placed underneath the bumper around the stoma site. Abdominal binder was replaced. G-tube will be returned to use. Dictated by... Guilherme Oviedo/kimmy TD: 12/05/2016 23:59 JOB #: [id number] Unit #: [id number] #: [id number] Patient: DAVONTE HUBER OPERATIVE REPORT Page 1 of 1 X Jaswant Figueroa MD X PROCEDURE OPERATIVE NOTE
--- NOTE | ~2016-12-03 | CR71 ---
[facility] A Service of [facility] RADIOLOGY TEXT RESULTS PATIENT: DAVONTE HUBER LOCATION: [address] : [birth year] UNIT #: [id number] AGE: [address]: Adalid Beard MD SEX: F ORDER DR: [id number] [facility] [address] [place], [place] [address] [id number] I MR#: [id number] Acc #: [id number] NAME: DAVONTE HUBER : 1975 SEX: F STUDY DATE/TIME: 12/03/2016 22:25 UNIT: [facility] ROOM: [facility] STUDY DESCRIPTION: CR Chest Single View Attending Physician: May Ruiz M.D. Ordering Physician: Sofiya Pineda M.D. Primary Care Physician: George Huynh M.D. MEDICAL IMAGING REPORT This report is preliminary unless electronic signature is present EXAM Portable AP view of the chest COMPARISON 04/04/2017 and 08:37 p.m. Patient 41-year-old female. Endotracheal tube placement today. FINDINGS Endotracheal tube has been retracted with the tip now terminating approximately 6 mm above the ravin. Retraction by another cm should be considered. The right subclavian catheter has been retracted, the tip now deep in the right atrium. Consider additional retraction by approximately 2 cm. There is new right pneumothorax measuring up to 1.2 cm in thickness along the right lateral chest wall. There is stable right basilar lung opacities favoring atelectasis. Correlation to exclude signs of pneumonia recommended. Thoracolumbar spinal stabilization hardware is grossly stable in appearance without evidence of complication. Evaluation of left lower chest is limited by patient rotation. There is a somewhat triangular appearing opacity overlapping the heart in the left lung base with loss of the left hemidiaphragmatic contour medially. This may represent atelectasis. Discontinuity of the patient's PARTS ROOM ASSISTANT shunt catheter is again noted in the right lower neck, grossly stable from May 21, 2016. IMPRESSION 1. New right-sided pneumothorax with a thickness of approximately 1.2 cm along the lateral right chest wall. 2. Right subclavian catheter has been retracted with the tip now deep in the right atrium. Consider additional retraction by 2 cm. 3. Endotracheal tube has been retracted but is still approximately 6 mm above the ravin. Consider additional retraction by a centimeter. Stable discontinuity of the PARTS ROOM ASSISTANT shunt in the right lower neck as compared to May of 2016. Correlation with shunt function is STS. [facility] A Service of [facility] RADIOLOGY TEXT RESULTS PATIENT: DAVONTE HUBER LOCATION: [facility]3 CICCU3-14 : [birth year] UNIT #: [id number] AGE: [address]: Adalid Beard MD SEX: F ORDER DR: truman. 4. Stable right basilar opacities favoring atelectasis although pneumonia cannot be excluded. Increased medial left basilar opacities are suspected, but not well evaluated due to patient positioning. At the most this would reflect new atelectasis. Courtesy call was placed to the nurse caring for this patient to notify of the findings of new right pneumothorax and support device positions. [facility] nurse caring for this patient was notified of these findings at 10:48 p.m. on December 03, 2016 and she will notify Dr. Pineda. 1. Dictated by... Christiano Rush M.D. THIS IS AN ELECTRONICALLY VERIFIED REPORT Christiano Rush M.D. at 12/07/2016 3:44 PM JOELLE/gracy TD: 12/04/2016 01:37 JOB #: [id number] MEDICAL IMAGING REPORT Page 1 of 1 COPY
--- NOTE | ~2016-12-03 | CO ---
Unit #: [id number] #: [id number] Patient: DAVONTE HUBER [id number] [address] [place], [place] [address] [id number] I MR#: [id number] NAME: DAVONTE HUBER ROOM: [facility] Age: 41 Sex: F Admission Date: 12/03/2016 : 1975 Attending Physician: May Ruiz M.D. Primary Care Physician: George Huynh M.D. Consultation Date: 12/05/2016 CONSULTATION REPORT HISTORY OF PRESENT ILLNESS Ms. Huber is a 41-year-old female with cerebral palsy who lives in a custodial who came to the hospital because of altered mental status and was found to have acute hypoxic respiratory failure and was intubated. She also probably has some sepsis and underlying pneumonia and was admitted by the Pulmonary Medicine Service to the ICU. Once in the ICU, during her evaluation, she was found to have a patent but dirty PEG tube that was losing wall integrity. We were consulted to replace her PEG. PAST MEDICAL HISTORY Renal failure, hyperkalemia, cerebral palsy, quadriplegia, mental retardation, muscular dystrophy, seizure disorder, has a history of a JEWEL BEARING FACER shunt placement, longstanding reflux, previous right femur fracture, history of tachycardia, has severe contractures. SOCIAL HISTORY intermediate. No smoking. No drinking. FAMILY HISTORY Unknown. ALLERGIES No allergies to medication. HOME MEDICATIONS 1. Flexeril. 2. Pepcid. 3. Free water. 4. Jevity. 5. Vitamins. 6. Baclofen. 7. Metoprolol. REVIEW OF SYSTEMS Unable to be obtained as she is nonverbal and intubated. PHYSICAL EXAMINATION GENERAL APPEARANCE: Patient sedated. VITAL SIGNS: Temperature 99.6. Pulse 115. Respirations 18. Blood pressure 102/50. HEENT: Unremarkable. CARDIAC: Tachy but regular. LUNGS: Clear. ABDOMEN: Soft. She has a very clean stoma around her PEG site in the Unit #: [id number] #: [id number] Patient: DAVONTE HUBER left upper quadrant. EXTREMITIES: Severely contracted. DIAGNOSTIC STUDIES LABORATORY: Blood gas: pH 7.38, pCO2 42, pO2 121 on 40% FIO2. Comprehensive metabolic panel shows a potassium of 3.3, otherwise, unremarkable. Lactic acid 3.6 on admission, now 2.1. INR 1.1. White count 5,600, hemoglobin 9.4, platelets 124,000. ASSESSMENT AND PLAN Patent but longstanding gastrostomy tube that is losing wall integrity and is dirty. When you try to aspirate back, the wall collapses. At the bedside, a 24-British replacement PEG tube was placed after removing the existing PEG. Gastric contents returned with slush. The patient tolerated the procedure well. Dictated by... Guilherme Oviedo/tori TD: 12/06/2016 07:11 JOB #: [id number] CONSULTATION REPORT Page 1 of 1 X Jaswant Figueroa MD X CONSULTATION REPORT
--- NOTE | ~2016-12-03 | OR ---
Unit #: [id number] #: [id number] Patient: DAVONTE HUBER [id number] [address] [place], [place] [address] [id number] I MR#: [id number] NAME: DAVONTE HUBER ROOM: [facility] Date of Procedure: 12/03/2016 Admission Date: 12/03/2016 Surgeon: Sofiya Pineda M.D. : 1975 Attending Physician: May Ruiz M.D. Primary Care Physician: George Huynh M.D. PROCEDURE OPERATIVE NOTE PREOPERATIVE DIAGNOSIS Respiratory failure. POSTOPERATIVE DIAGNOSIS Respiratory failure. PROCEDURE PERFORMED Endotracheal intubation. INDICATION Respiratory failure. DETAIL OF THE PROCEDURE After placing patient in appropriate position with size 4 Mac a size 7.5 endotracheal tube was passed through the vocal cord and the patient tolerated the procedure very well. No complications happened. Post procedure chest x-ray was ordered. Dictated by... Guilherme Delacruz/shanice TD: 12/04/2016 12:59 JOB #: [id number] PROCEDURE OPERATIVE NOTE Page 1 of 1 X Sofiya Pineda MD PROCEDURE OPERATIVE NOTE
--- NOTE | ~2016-12-03 | CR72 ---
[facility] A Service of [facility] RADIOLOGY TEXT RESULTS PATIENT: DAVONTE HUBER LOCATION: [address] : [birth year] UNIT #: [id number] AGE: [address]: Adalid Beard MD SEX: F ORDER DR: [id number] [facility] [address] [place], [place] [address] [id number] I MR#: [id number] Acc #: [id number] NAME: DAVONTE HUBER : 1975 SEX: F STUDY DATE/TIME: 12/08/2016 6:06 UNIT: [facility] ROOM: [facility] STUDY DESCRIPTION: CR Chest Single View Portable Attending Physician: Adalid Beard M.D. Ordering Physician: Physician Non-Staff Primary Care Physician: George Huynh M.D. MEDICAL IMAGING REPORT This report is preliminary unless electronic signature is present EXAM Frontal chest, 12/08/2016 INDICATION Shortness of air, lethargy Ventilator patient. Symptoms 5 days. TECHNIQUE Frontal chest COMPARISON 12/07/2016 FINDINGS ET tube tip in good position above the ravin. Right sided central line probably unchanged but obscured by surgical fixation hardware. Right-sided chest tube present. There is a very tiny right apical pneumothorax. Additional curvilinear artifact projects over the right medial hemithorax of unclear etiology but unchanged. Cardiac silhouette is stable. Lung volumes are low. There is bronchovascular crowding. Left lung appears clear. There is asymmetric atelectasis or less likely infiltrate in the right lung base. The right-sided pneumothorax appears tiny in its apical extent but is stable to slightly larger in its inferior lateral extent when compared with the prior study. Correlate with tube function. Persistent subcutaneous emphysema. Postop changes of thoracolumbar fusion. IMPRESSION 1. Tubes and lines appear to be in satisfactory position to the extent visualized. The right-sided pneumothorax has a small apical component but the inferior lateral component is larger than on the prior study. Correlate with tube function. No new mediastinal shift. 2. Probable atelectasis in the perihilar and lower lung zone on the right. No new effusion. [facility] A Service of [facility] RADIOLOGY TEXT RESULTS PATIENT: DAVONTE HUBER LOCATION: [facility]3 CICCU3-14 : [birth year] UNIT #: [id number] AGE: [address]: Adalid Beard MD SEX: F ORDER DR: STAT * RESULT Dictated by... Dragan Caldwell M.D. THIS IS AN ELECTRONICALLY VERIFIED REPORT Dragan Caldwell M.D. at 12/08/2016 5:41 PM Russell TD: 12/08/2016 10:06 JOB #: [id number] MEDICAL IMAGING REPORT Page 1 of 1 COPY
--- NOTE | ~2016-12-03 | CO ---
Unit #: [id number] #: [id number] Patient: DAVONTE HUBER [id number] [address] [address] [id number] I MR#: [id number] NAME: DAVONTE HUBER ROOM: [facility] Age: 41 Sex: F Admission Date: 12/03/2016 : 1975 Attending Physician: May Ruiz M.D. Primary Care Physician: George Huynh M.D. Consultation Date: 12/03/2016 CONSULTATION REPORT REASON FOR CONSULTATION Critical care management. CHIEF COMPLAINT Altered mental status and patient has a history of cerebral palsy, mentally retarded, presented with a complain of altered mental status, admitted with infectious of sepsis, acute renal failure and hyperkalemia. I'm seeing the patient at the bedside currently. She is intubated on a ventilator. REVIEW OF SYSTEMS Unobtainable. PAST MEDICAL HISTORY Significant for cerebral palsy, mental retardation, seizure disorder, pica, hydrocephalus, (1) , and gastroesophageal reflux disease. LETTER SORTING MACHINE OPERATOR shunt. PEG tube placement. ALLERGIES Unknown. FAMILY HISTORY Medication as per MAR has been reviewed. PHYSICAL EXAMINATION GENERAL: On ventilator, sedated. CVS: S1+ S2. RESPIRATION: Bilateral air entry. GI: Distended. Bowel sounds positive. EXTREMITIES: Contracted. DIAGNOSTIC STUDIES LABORATORY STUDIES: Blood gas - pH 7.30, pCO2 37, pO2 85. BUN is 60, creatinine 2.2, calcium 6.2, bicarb is 16, chloride 115. Her white count is 5, hemoglobin 14, hematocrit 47, platelet 227. ASSESSMENT 1. Acute respiratory failure and sepsis. 2. Acute kidney injury and pneumonia. 3. History of cerebral palsy. 4. Critically ill patient. PLAN Continue ventilator support and continue new bronchodilator. Broad Unit #: [id number] #: [id number] Patient: DAVONTE HUBER spectrum IV antibiotic. GI and DVT prophylaxis. IV fluids. Treated for hyperkalemia and renal consultation. Patient will be closely monitored. Please see orders for detailed plan. Critical care time is 75 minutes in direct critical care of this patient. Dictated by... Sofiya Pineda M.D. RY/shanice TD: 12/04/2016 12:27 JOB #: [id number] CONSULTATION REPORT Page 1 of 1 X Sofiya Pineda MD CONSULTATION REPORT
--- NOTE | ~2016-12-03 | CR72 ---
[facility] A Service of [facility] & [facility] RADIOLOGY TEXT RESULTS PATIENT: DAVONTE HUBER LOCATION: CICCU3 CICCU3-14 : [birth year] UNIT #: [id number] AGE: [address]: PILLO MARRERO MD SEX: F ORDER DR: [id number] [facility] [address] [place], [place] [address] [id number] MR#: [id number] Acc #: [id number] NAME: DAVONTE HUBER : 1975 SEX: F STUDY DATE/TIME: 12/03/2016 12:09 UNIT: [facility] ROOM: STUDY DESCRIPTION: CR Chest Single View Portable Attending Physician: Alonzo Arreola M.D. Ordering Physician: Alonzo Arreola M.D. Primary Care Physician: George Huynh M.D. MEDICAL IMAGING REPORT This report is preliminary unless electronic signature is present EXAM Single view of the chest dated 12/03/2016 COMPARISON Single view of the chest dated 05/21/2016 HISTORY Congestion, incoherent and cough starting today. FINDINGS Single view of the chest was obtained. Lungs appear to be well aerated. The heart and mediastinum are stable. Postoperative changes are noted in the thoracolumbar spine with presence of hardware. Parallel to the spine in the right lateral aspect vertically linear opacity is noted which extends all the way up towards the right lateral neck soft tissues. It was also seen on the previous study and could represent chronic dystrophic calcification. Given the lack of a lateral view, exact positioning of it this limited but given the stability it is probably benign and chronic. Dictated by... Gabriel Diop M.D. THIS IS AN ELECTRONICALLY VERIFIED REPORT Gabriel Diop M.D. at 12/05/2016 3:00 PM CPR/wendi TD: 12/03/2016 13:29 JOB #: [id number] MEDICAL IMAGING REPORT Page 1 of 1 COPY
--- NOTE | ~2016-12-03 | FU ---
[facility] Nutrition Therapy DATE: 12/07/16 Patient: DAVONTE HUBER Physician: KASSIE Address: [address] [place] [address] Room/Bed: [address], Zip: [place] [address] Admit Date: 12/03/16 Date of : [birth year] Height: 4 9 Weight: 66 29.93 NUTRITION MONITORING/FOLLOW-UP: Reason: Nutrition follow up Anthropometrics: Ht: 4'9" Adm wt: 28.5 kg BMI: 13.6 Adj. IBW: 38.7 kg Wt 12/07: Not updated Labs: K+ 3.2 Gluc 188 BUN 8 Ca++ 8.0 Alb 2.4 Meds: Thiamine HCl, MgSO4, KCl, pepcid, bisacodyl, vitamin D, MVI I&O's: 3102/3306, last BM 12/03 Skin: No changes noted Edema: None noted Estimated Nutrition Needs: [id number] kcals (35-40 kcals/kg Adj.IBW) 58-77 grams protein (1.5-2.0 grams/kg Adj.IBW) Assessment: Chart reviewed, events noted. Pt remains in ICU, was extubated yesterday, then re-intubated for collapsed lung. Pt is likely going to be extubated today per RN report. Pt was receiving enteral nutrition with Jevity 1.5 @ 30 mL/hr, which is currently on hold for bronch this AM. EN to resume later if pt is off BiPAP per MD orders. Per pump history, the pt has received 45% goal volume over 24 hrs. Pt does not have an updated weight since admission. Of note, the pt's PEG had black spots in it, and has been changed out. Please see recommendations below. Dx: Severe PCM RT increased nutrient needs, PMH AEB BMI 13.6, 74% IBW, 21% weight loss in 6 months- ACTIVE Intervention: 1. Enteral nutrition 2. RN BUILDING once appropriate Monitoring, Evaluation and Goals: 1. Enteral nutrition; provide >80% goal volume x 24 hrs- IN PROGRESS 2. Improve labs; Creat (IMPROVED), Phos (IMPROVED), Ca++ (IMPROVED), AST (NOT UPDATED), ALT (NOT UPDATED) 3. Weight; preserve lean body mass, prevent weight loss- UNKNOWN (NO NEW WT) 4. Skin; prevent breakdown- IN PROGRESS [facility] Nutrition Therapy DATE: 12/07/16 Patient: DAVONTE HUBER Physician: KASSIE Address: [address] [place] [address] Room/Bed: [address], Zip: [place] [address] Admit Date: 12/03/16 Date of : [birth year] Height: 4 9 Weight: 66 29.93 Recommendations: 1. Continue enteral nutrition with Jevity 1.5 @ 40 mL/hr + Prostat once daily as tolerated. 2. Once the pt is extubated, recommend RN BUILDING evaluation when appropriate. The pt apparently consumed pureed foods prior to admission. Advance diet per RN BUILDING recommendations. 3. If the pt's diet is advanced, RD will re-evaluate enteral nutrition regimen (bolus vs. continuous) based on PO intake. Status: Pt is at moderate nutritional risk. RD will continue to follow up per protocol. Respectfully, JEOVANY PIERCE RD, LD [facility] cc: client file
--- NOTE | ~2016-12-03 | DS ---
Unit #: [id number] #: [id number] Patient: DAVONTE HUBER [id number] [facility]. [place], [place] [address] [id number] I MR#: [id number] NAME: DAVONTE HUBER ROOM: [facility] Age: 41 Sex: F Admission Date: 12/03/2016 : 1975 Discharge Date: Attending Physician: Adalid Beard M.D. Primary Care Physician: George Huynh M.D. DISCHARGE SUMMARY ADDENDUM I spoke with the casework supervisor and she does have a bed in [place] at [facility]. I spoke with the patient's caregiver and explained her overall prognosis is critical and she possibly may need "do not resuscitate" orders. PHYSICAL EXAMINATION VITALS: On the date of discharge her temperature is 100.4, pulse rate 120, respiratory rate 23, blood pressure 127/74. GENERAL: The patient is thin and orally intubated. HEENT: Normocephalic, atraumatic. CHEST: Bilateral rhonchi. She has a right-sided chest tube. HEART: S1 and S2. Tachycardic. ABDOMEN: Soft and nontender. She has a PEG tube. EXTREMITIES: Mild edema. She is in a contracted posture. DISCHARGE MEDICATIONS 1. Lovenox 30 mg subcutaneous daily. 2. Tylenol p.r.n. 3. Combivent 3 ml inhalation q.4 h. p.r.n. shortness of breath. 4. Zonegran 300 mg at bedtime. 5. Phenobarb 32.4 mg at bedtime. 6. Ativan 0.25 mg IV q.4 h. p.r.n. agitation. 7. Lactulose. 8. Metoprolol 12.5 mg per PEG q.12 h. Hold for systolic blood pressure less than 110 and heart rate less than 60. 9. Bisacodyl 10 mg p.r.n. constipation. 10. Zinc 220 mg p.o. daily. 11. Pepcid 20 mg b.i.d. 12. Multivitamin 50 ml per PEG daily. 13. Baclofen 20 mg per PEG t.i.d. 14. Thiamine 100 mg per PEG b.i.d. 15. Cholecalciferol vitamin B 1000 units daily. 16. Rocephin 1 g IV daily for 5 more days. 17. Zithromax 500 mg IV daily for 5 more days. Kindly note, we did send some blood cultures and she did receive one dose of vancomycin here. If there are any positive cultures, we will inform Dr. Pineda, admitting physician about any positive cultures. Total time spent in her care 35 minutes. Unit #: [id number] #: [id number] Patient: DAVONTE HUBER Dictated by..Guilherme Flaherty/marty TD: 12/09/2016 15:19 JOB #: [id number] DISCHARGE SUMMARY Page 1 of 1 X X DISCHARGE SUMMARY
--- NOTE | ~2016-12-03 | CR72 ---
[facility] A Service of [facility] RADIOLOGY TEXT RESULTS PATIENT: DAVONTE HUBER LOCATION: [address] : [birth year] UNIT #: [id number] AGE: [address]: Adalid Beard MD SEX: F ORDER DR: [id number] [facility] [address] [place], [place] [address] [id number] I MR#: [id number] Acc #: [id number] NAME: DAVONTE HUBER : 1975 SEX: F STUDY DATE/TIME: 12/07/2016 8:47 UNIT: [facility] ROOM: [facility] STUDY DESCRIPTION: CR Chest Single View Portable Attending Physician: Adalid Beard M.D. Ordering Physician: Meng Duque M.D. Primary Care Physician: George Huynh M.D. MEDICAL IMAGING REPORT This report is preliminary unless electronic signature is present EXAM Portable chest x-ray 12/07/2016. HISTORY Intubation. Bronchoscopy. Right chest tube. Status post bronchoscopy intubation. Right chest tube, mucus. TECHNIQUE AP right anterior oblique view of the chest is presented. COMPARISON Comparison to the examination earlier today. FINDINGS Interval placement of endotracheal tube which terminates 1.5 cm above the ravin. The endotracheal tube positioning may be artifactually low, given the low lung volumes. For placement in the mid thoracic trachea, it could be retracted by approximately 1 cm and reassessed radiographically. The right subclavian central venous catheter is unchanged. The right pleural drain unchanged. Residual components of probable right-sided ventriculoperitoneal shunt unchanged. Heart upper limits of normal in size, given obliquity. Lung volumes are low. There has been marked decrease in the large right pneumothorax seen on earlier examination. Marked improvement in right lung inflation. Small residual right pneumothorax measuring about 5-6 mm in width at the apex and inferolaterally. Mildly increased interstitial markings in the lungs bilaterally. Likely reflecting mild interstitial edema and, in the right ekx-fc-korbe lung zone, some degree of residual atelectasis. No dense airspace disease. No pleural effusion. Spinal fixation hardware unchanged. No acute bony abnormality. [facility] A Service of [facility] RADIOLOGY TEXT RESULTS PATIENT: DAVONTE HUBER LOCATION: [facility] CICCU3-14 : [birth year] UNIT #: [id number] AGE: [address]: Adalid Beard MD SEX: F ORDER DR: Dictated by... Aubrey Martin M.D. THIS IS AN ELECTRONICALLY VERIFIED REPORT Aubrey Martin M.D. at 12/08/2016 10:54 PM GILES/lori TD: 12/07/2016 12:07 JOB #: [id number] MEDICAL IMAGING REPORT Page 1 of 1 COPY
--- NOTE | ~2016-12-03 | CR72 ---
[facility] A Service of [facility] & [facility] RADIOLOGY TEXT RESULTS PATIENT: DAVONTE HUBER LOCATION: [address] : [birth year] UNIT #: [id number] AGE: [address]: Adalid Beard MD SEX: F ORDER DR: [id number] [facility] [address] [place], [place] [address] [id number] I MR#: [id number] Acc #: [id number] NAME: DAVONTE HUBER : 1975 SEX: F STUDY DATE/TIME: 12/07/2016 3:08 UNIT: [facility] ROOM: [facility] STUDY DESCRIPTION: CR Chest Single View Portable Attending Physician: Adalid Beard M.D. Ordering Physician: Danilo Ruiz M.D. Primary Care Physician: George Huynh M.D. MEDICAL IMAGING REPORT This report is preliminary unless electronic signature is present EXAM AP portable chest, 12/07/2016 at 03:08 HISTORY Respiratory failure. Symptoms present since 12/03/2016. Right side pneumothorax with chest tube placement. COMPARISON AP portable chest, 12/06/2016 at 04:40. FINDINGS A large right side pneumothorax has developed, and the right lung appears completely collapsed or atelectatic. The right chest tube appears unchanged, however, in position compared to yesterday's exam. This pertinent finding was called to the patient's nurse, Neisha, at the time of this dictation, 12/07/2016 at 03:40. She is in attempts to contact the physician caring for the patient. There is some mild airspace disease in the left upper lobe. Heart size is enlarged but stable. ET tube has been removed. The right subclavian approach central line appears unchanged in position. Surgical changes of bilateral thoracolumbar Bryant charli fusion with thoracolumbar scoliosis. IMPRESSION 1. Large right pneumothorax with complete collapse or atelectasis of the right lung, despite the right chest tube appearing unchanged in position since yesterday's study. Major findings were called the patient's nurse at this time. 2. Mild airspace disease in the left upper lobe. 3. Interval ET tube removal. Dictated by... Iveth Goyal M.D. [facility] A Service of [facility] & [facility] RADIOLOGY TEXT RESULTS PATIENT: DAVONTE HUBER LOCATION: [address] : [birth year] UNIT #: [id number] AGE: [address]: Adalid Beard MD SEX: F ORDER DR: THIS IS AN ELECTRONICALLY VERIFIED REPORT Iveth Goyal M.D. at 12/07/2016 10:05 PM ANDRES/wendi TD: 12/07/2016 09:47 JOB #: [id number] MEDICAL IMAGING REPORT Page 1 of 1 COPY
--- NOTE | ~2016-12-03 | TOC ---
Unit #: [id number] #: [id number] Patient: DAVONTE HUBER [id number] [address] [place], [place] [address] [id number] I MR#: [id number] NAME: DAVONTE HUBER ROOM: [facility] Age: 41 Sex: F Admission Date: 12/03/2016 : 1975 Attending Physician: Adalid Beard M.D. Primary Care Physician: George Huynh M.D. TRANSFER OF CARE SUMMARY TRANSFER OF CARE Kindly note, this is an interim discharge summary and I will dictate final discharge summary later. CONSULTANTS 1. Dr. Danilo Ruiz/Dr. Pineda. 2. Dr. Ananth Jin. ADMITTING DIAGNOSIS Weakness. FURTHER DIAGNOSES 1. Sepsis secondary to pneumonia with Haemophilus influenzae pneumonia. 2. Right lower lobe pneumonia. 3. Ruffin palsy. 4. Mental retardation. 5. Seizure disorder. 6. Hydrocephalus. 7. History of kidney failure. 8. Hyperkalemia. 9. Torticollis. 10. GERD. HISTORY OF PRESENT ILLNESS The patient is a 41-year-old, thin, -[place] lady with multiple medical problems including cerebral palsy, mental retardation, seizure disorder, hydrocephalus, pica, hyponatremia, torticollis, and GERD. Was brought by the caregiver mainly because of weakness. Patient is taken care by her family and adult daycare at home. She is (1) . In the initial evaluation, she was noted to have sepsis with lactic level high up to 3.6 and potassium 6.2. HOSPITAL COURSE She was seen by renal services. Her fluids were adjusted and she was seen by pulmonary services. Initially, she was hypotensive in shock. She got an IV access placed and started on fluids. Slowly, her blood pressure stabilized. She developed collapse of the left lower lobe. She had bronchitis. She had a pneumothorax involving the right side of the chest. She had a chest tube placed. Her sputum cultures came back positive for Haemophilus influenzae. She was initially on Rocephin. She is still spiking fevers. Today, I am sending blood cultures and I am starting her on vancomycin. I discussed with the block and case maker. They are planning to see if she can be evaluated for [place]. Unit #: [id number] #: [id number] Patient: DAVONTE HUBER Code status is currently full code keeping into consideration her multiple comorbidities if she gets a trach and if she ends up intubated, her overall course will be more complicated. feed manager is trying to talk with the patient's Power of Process Control Tech and [place] of the state. Her PEG tube was repositioned in this hospitalization by Dr. Figueroa. A final discharge summary will be dictated by me or my colleague at the time of actual discharge. Dictated by... Adalid Beard M.D. ABIGAIL/justen TD: 12/09/2016 12:41 JOB #: [id number] TRANSFER OF CARE SUMMARY Page 1 of 1 X X TRANSFER OF CARE SUMMARY
--- NOTE | ~2016-12-03 | OR ---
Unit #: [id number] #: [id number] Patient: DAVONTE HUBER [id number] [address] [place], [place] [address] [id number] I MR#: [id number] NAME: DAVONTE HUBER ROOM: [facility] Date of Procedure: 12/07/2016 Admission Date: 12/03/2016 Surgeon: Davy Ruiz M.D. : 1975 Attending Physician: Adalid Beard M.D. Primary Care Physician: George Huynh M.D. PROCEDURE OPERATIVE NOTE PROCEDURE PERFORMED Direct laryngoscope intubation. INDICATION FOR PROCEDURE Right lung collapse leading to respiratory distress. PREOPERATIVE DIAGNOSIS Pneumonia and right-sided pneumothorax. COMPLICATIONS None. PREMEDICATION Etomidate 20 mg IV x1, Versed 2 mg IV x1. DESCRIPTION OF PROCEDURE An informed consent was waved as patient is a full code and she was in distress. The patient was prepped and positioned in a proper way, then she was premedicated and a MAC size 3 blade was inserted and a (1) grade of 3 was obtained, then ET tube 7.5 cm size was inserted past the vocal cords with no complications. The cuff was inflated and good CO2 detector monitor was obtained, then good bilateral breath sounds also was heard. The ET tube placement was confirmed with bronchoscopy. Dictated by... Davy Ruiz M.D. EA/ethan TD: 12/07/2016 11:20 JOB #: [id number] Unit #: [id number] #: [id number] Patient: DAVONTE HUBER PROCEDURE OPERATIVE NOTE Page 1 of 1 X DAVY BEGUM MD X PROCEDURE OPERATIVE NOTE
[~2016-12-03 11:21] MED LIST: ACID CONTROLLER20 MG PEG; ANEXSIA 5/325 M1 TA1 PEG; BACLOFEN20 M1 PEG; BACLOFEN20 M1 PO; GENTLE LAXATIVE10 MG PR; JEVITY 1.5 CA1000 ML PEG; KEFLEX500 MG PO; LEVAQUIN PEG; LOPRESSOR PEG; LOVENOX30 MG/0.3 INJ; MULTI-DAY1 TAB PO; MULTIVITAMIN W-1 TAB PEG; PHENOBARB PO; PHENOBARBITAL15 MG PEG; PREVACID15 MG PO; TYLENOL325 M1 PEG; VITAL-D RX TABL1 TAB PEG; ZONEGRAN100 M1 PO; ZONEGRAN100 MG PEG
[2016-12-03 11:22] LABS: POC - CKMB 4.2 ng/mL (0.0-7.9); POC - TROPONIN <0.05 ng/mL (<=0.05)
[2016-12-03 11:23] LABS: BASOPHIL% 0.2 % (0-2.5); HEMATOCRIT 47.3 % (35.0-45.0); HEMOGLOBIN 14.6 gm/dL (12.0-16.0); LYMPHOCYTE# 0.7 X10e3 (1.0-3.5); LYMPHOCYTE% 13.4 % (17.0-45.0); MEAN CELL VOLUME 89.2 FL (83-96); MEAN CORPUSCULAR HEMOGLOBIN 27.5 PG (28-34); MEAN CORPUSCULAR HGB CONC 30.8 g/dL (30-36); MEAN PLATELET VOLUME 9.3 FL (6.5-11.5); MONOCYTE# 0.6 X10e3 (0-1.0); MONOCYTE% 10.3 % (3.0-12.0); NEUTROPHIL# 4.2 X10e3 (1.5-7.1); NEUTROPHIL% 76.1 % (40-75); PLATELET COUNT 227 X10e3 (140-420); RED BLOOD COUNT 5.31 X10e (3.90-5.30); RED CELL DISTRIBUTION WIDTH 16.3 % (11.0-15.5); WHITE BLOOD COUNT 5.5 X10e3 (4.0-10.5)
[2016-12-03 11:37] LABS: DIFF IND NO
[2016-12-03 11:38] LABS: INR 1.1; PARTIAL THROMBOPLASTIN TIME 29.9 SECONDS (23.5-31.3); PROTHROMBIN TIME (PATIENT) 11.1 SECONDS (9.6-11.5)
[2016-12-03 11:54] LABS: ALBUMIN SERUM 3.5 g/dL (3.5-5.0); BILIRUBIN, DIRECT 0.1 mg/dL (0.0-0.2); BILIRUBIN,INDIRECT 0.4 mg/dL (0.0-0.9); BILIRUBIN,TOTAL 0.5 mg/dL (0.2-2.0); BUN/CREATININE RATIO 27.27; CALCIUM SERUM 8.9 mg/dL (8.4-10.2); CREATININE SERUM 2.2 mg/dL (0.6-1.4); GLOM FILT RATE Estimated 31.7 mL/min (>60); PROTEIN TOTAL SERUM 7.2 g/dL (6.0-8.3)
[2016-12-03 11:54] LABS: URINE SOURCE CLEAN CATCH
[2016-12-03 11:56] LABS: POTASSIUM 6.2 mmol/L (3.5-5.1)
[2016-12-03 12:05] LABS: URINE APPEARANCE CLEAR; URINE BLOOD 1+ (NEG); URINE GLUCOSE NEG (NEG); URINE KETONE NEG (NEG); URINE LEUKOCYTE ESTERASE 2+ (NEG); URINE NITRATE POS (NEG); URINE PH 5.5 (5-8); URINE PROTEIN TRACE (NEG); URINE SPECIFIC GRAVITY 1.022 (1.003-1.035)
[2016-12-03 12:09] LABS: URINE SQUAMOUS EPITHELIAL CELL NONE SEEN /[HPF]
[2016-12-03 12:21] LABS: URINE BILIRUBIN NEG (NEG)
[2016-12-03 12:23] LABS: URINE CRYSTALS CALCIUM OXALATE /[HPF]
[2016-12-03 12:25] LABS: URINE COLOR BROWN
[2016-12-03 12:27] LABS: CULTURE INDICATED? YES; URINE BACTERIA AUWI 1+ (NEGATIVE)
[2016-12-03 18:40] LABS: ARTERIAL BLD GAS O2 SATURATION 95.7 % (90.0-100.0); ARTERIAL BLOOD GAS CARBOXY HB 0.3 %sat (0.0-9.0); ARTERIAL BLOOD GAS HCO3 18.8 mmol/L; ARTERIAL BLOOD GAS MET HB 0.6 %sat (0.0-2.0); ARTERIAL BLOOD GAS PCO2 37.6 mmHg (35.0-45.0); ARTERIAL BLOOD GAS PO2 85.8 mmHg (80.0-100); ARTERIAL BLOOD GAS pH 7.307 (7.350-7.450)
[2016-12-03 18:41] LABS: ARTERIAL BLOOD GAS ALLEN TEST NORMAL; ARTERIAL BLOOD GAS ART SITE RIGHT RADIAL; ARTERIAL BLOOD GAS DELIVERY NASAL CANNULA; ARTERIAL DRAW? YES
[2016-12-03 20:56] LABS: BUN/CREATININE RATIO 32.72; CREATININE SERUM 1.1 mg/dL (0.6-1.4); GLOM FILT RATE Estimated 73.3 mL/min (>60)
[2016-12-03 20:58] LABS: CALCIUM SERUM 7.4 mg/dL (8.4-10.2); POTASSIUM 4.5 mmol/L (3.5-5.1)
[2016-12-03 22:12] LABS: ARTERIAL BLD GAS O2 SATURATION 43.6 % (90.0-100.0); ARTERIAL BLOOD GAS CARBOXY HB 0.5 %sat (0.0-9.0); ARTERIAL BLOOD GAS MET HB 0.7 %sat (0.0-2.0)
[2016-12-03 23:12] LABS: ARTERIAL BLD GAS O2 SATURATION 99.9 % (90.0-100.0); ARTERIAL BLOOD GAS HCO3 18.7 mmol/L; ARTERIAL BLOOD GAS MET HB 0.7 %sat (0.0-2.0); ARTERIAL BLOOD GAS pH 7.209 (7.350-7.450)
[2016-12-03 23:14] LABS: ARTERIAL BLOOD GAS DELIVERY VENT; ARTERIAL BLOOD GAS PCO2 60.2 mmHg (35.0-45.0); ARTERIAL BLOOD GAS VENT MODE AC; ARTERIAL BLOOD GAS pH 7.151 (7.350-7.450); ARTERIAL DRAW? NO
[2016-12-03 23:15] LABS: ARTERIAL BLOOD GAS ALLEN TEST NORMAL; ARTERIAL BLOOD GAS ART SITE LEFT BRACHIAL; ARTERIAL BLOOD GAS DELIVERY VENT; ARTERIAL BLOOD GAS VENT MODE AC; ARTERIAL DRAW? YES
[2016-12-04 03:41] LABS: ARTERIAL BLD GAS O2 SATURATION 96.4 % (90.0-100.0); ARTERIAL BLOOD GAS CARBOXY HB 0.4 %sat (0.0-9.0); ARTERIAL BLOOD GAS HCO3 20.1 mmol/L; ARTERIAL BLOOD GAS MET HB 0.7 %sat (0.0-2.0); ARTERIAL BLOOD GAS PCO2 44.6 mmHg (35.0-45.0); ARTERIAL BLOOD GAS PO2 94.1 mmHg (80.0-100); ARTERIAL BLOOD GAS pH 7.262 (7.350-7.450)
[2016-12-04 03:42] LABS: ARTERIAL BLOOD GAS ALLEN TEST NORMAL; ARTERIAL BLOOD GAS ART SITE LEFT BRACHIAL; ARTERIAL BLOOD GAS DELIVERY VENT; ARTERIAL BLOOD GAS VENT MODE AC; ARTERIAL DRAW? YES
[2016-12-04 05:14] LABS: BASOPHIL% 0.4 % (0-2.5); EOSINOPHIL% 0.8 % (0.0-7.0); HEMATOCRIT 33.8 % (35.0-45.0); LYMPHOCYTE# 0.2 X10e3 (1.0-3.5); LYMPHOCYTE% 15.2 % (17.0-45.0); MEAN CELL VOLUME 89.1 FL (83-96); MEAN CORPUSCULAR HEMOGLOBIN 27.9 PG (28-34); MEAN CORPUSCULAR HGB CONC 31.3 g/dL (30-36); MEAN PLATELET VOLUME 9.3 FL (6.5-11.5); MONOCYTE# 0.1 X10e3 (0-1.0); MONOCYTE% 7.8 % (3.0-12.0); NEUTROPHIL# 1.1 X10e3 (1.5-7.1); NEUTROPHIL% 75.8 % (40-75); PLATELET COUNT 145 X10e3 (140-420); RED BLOOD COUNT 3.79 X10e (3.90-5.30); RED CELL DISTRIBUTION WIDTH 16.7 % (11.0-15.5)
[2016-12-04 05:15] LABS: HEMOGLOBIN 10.6 gm/dL (12.0-16.0); WHITE BLOOD COUNT 1.4 X10e3 (4.0-10.5)
[2016-12-04 05:17] LABS: DIFF IND YES
[2016-12-04 06:06] LABS: ALBUMIN SERUM 2.5 g/dL (3.5-5.0); BILIRUBIN,TOTAL 0.4 mg/dL (0.2-2.0); CALCIUM SERUM 6.8 mg/dL (8.4-10.2); CREATININE SERUM 0.6 mg/dL (0.6-1.4); GLOM FILT RATE Estimated 133.1 mL/min (>60); MAGNESIUM 2.2 mg/dL (1.6-3.0); PHOSPHOROUS 2.7 mg/dL (2.5-4.6); POTASSIUM 3.4 mmol/L (3.5-5.1)
[2016-12-04 06:31] LABS: ANISOCYTOSIS SL; PLATELET ESTIMATE NORMAL (NORMAL); POIKILOCYTOSIS SL; RBC NORMAL YES
[2016-12-04 06:32] LABS: VACUOLIZATION SL
[2016-12-04 06:34] LABS: LEGIONELLA AG URINE NEG (NEG)
[2016-12-04 09:38] LABS: INFLUENZA A NEG (NEG)
[2016-12-04 09:39] LABS: INFLUENZA B NEG (NEG)
[2016-12-05 03:57] LABS: ARTERIAL BLD GAS O2 SATURATION 97.9 % (90.0-100.0); ARTERIAL BLOOD GAS CARBOXY HB 0.5 %sat (0.0-9.0); ARTERIAL BLOOD GAS HCO3 24.8 mmol/L; ARTERIAL BLOOD GAS MET HB 0.7 %sat (0.0-2.0); ARTERIAL BLOOD GAS PCO2 42.3 mmHg (35.0-45.0); ARTERIAL BLOOD GAS pH 7.377 (7.350-7.450)
[2016-12-05 04:05] LABS: ARTERIAL BLOOD GAS ALLEN TEST NORMAL; ARTERIAL BLOOD GAS ART SITE RIGHT RADIAL; ARTERIAL DRAW? YES
[2016-12-05 04:06] LABS: ARTERIAL BLOOD GAS DELIVERY VENT; ARTERIAL BLOOD GAS VENT MODE AC
[2016-12-05 04:19] LABS: BASOPHIL% 0.3 % (0-2.5); DIFF IND NO; EOSINOPHIL# 0.1 X10e3 (0-0.7); EOSINOPHIL% 1.1 % (0.0-7.0); HEMOGLOBIN 9.4 gm/dL (12.0-16.0); LYMPHOCYTE# 0.6 X10e3 (1.0-3.5); MEAN CORPUSCULAR HEMOGLOBIN 27.7 PG (28-34); MEAN CORPUSCULAR HGB CONC 31.5 g/dL (30-36); MEAN PLATELET VOLUME 9.8 FL (6.5-11.5); MONOCYTE# 0.2 X10e3 (0-1.0); MONOCYTE% 4.1 % (3.0-12.0); NEUTROPHIL# 4.7 X10e3 (1.5-7.1); NEUTROPHIL% 83.5 % (40-75); PLATELET COUNT 124 X10e3 (140-420); RED BLOOD COUNT 3.41 X10e (3.90-5.30); RED CELL DISTRIBUTION WIDTH 15.9 % (11.0-15.5); WHITE BLOOD COUNT 5.6 X10e3 (4.0-10.5)
[2016-12-05 04:33] LABS: ALBUMIN SERUM 2.3 g/dL (3.5-5.0); BILIRUBIN,TOTAL 0.5 mg/dL (0.2-2.0); CALCIUM SERUM 7.5 mg/dL (8.4-10.2); CREATININE SERUM 0.5 mg/dL (0.6-1.4); GLOM FILT RATE Estimated 141.3 mL/min (>60); MAGNESIUM 1.6 mg/dL (1.6-3.0); PHOSPHOROUS 1.7 mg/dL (2.5-4.6); POTASSIUM 3.6 mmol/L (3.5-5.1); PROTEIN TOTAL SERUM 5.3 g/dL (6.0-8.3)
[2016-12-05 14:45] LABS: BUN/CREATININE RATIO 17.5; CALCIUM SERUM 7.7 mg/dL (8.4-10.2); CREATININE SERUM 0.4 mg/dL (0.6-1.4); GLOM FILT RATE Estimated 152.1 mL/min (>60); MAGNESIUM 2.1 mg/dL (1.6-3.0); PHOSPHOROUS 1.6 mg/dL (2.5-4.6); POTASSIUM 3.3 mmol/L (3.5-5.1)
[2016-12-05 22:37] LABS: CALCIUM SERUM 7.3 mg/dL (8.4-10.2); CREATININE SERUM 0.5 mg/dL (0.6-1.4); GLOM FILT RATE Estimated 141.3 mL/min (>60); PHOSPHOROUS 3.3 mg/dL (2.5-4.6); POTASSIUM 3.9 mmol/L (3.5-5.1)
[2016-12-06 04:04] LABS: ARTERIAL BLD GAS O2 SATURATION 98.3 % (90.0-100.0); ARTERIAL BLOOD GAS CARBOXY HB 0.4 %sat (0.0-9.0); ARTERIAL BLOOD GAS HCO3 22.2 mmol/L; ARTERIAL BLOOD GAS MET HB 0.8 %sat (0.0-2.0); ARTERIAL BLOOD GAS PCO2 38.4 mmHg (35.0-45.0); ARTERIAL BLOOD GAS pH 7.369 (7.350-7.450)
[2016-12-06 04:07] LABS: ARTERIAL BLOOD GAS ALLEN TEST NORMAL; ARTERIAL BLOOD GAS ART SITE LEFT RADIAL; ARTERIAL BLOOD GAS DELIVERY VENT; ARTERIAL BLOOD GAS VENT MODE AC; ARTERIAL DRAW? YES
[2016-12-06 05:02] LABS: BASOPHIL% 0.3 % (0-2.5); DIFF IND NO; EOSINOPHIL# 0.1 X10e3 (0-0.7); EOSINOPHIL% 2.1 % (0.0-7.0); HEMATOCRIT 26.8 % (35.0-45.0); HEMOGLOBIN 8.6 gm/dL (12.0-16.0); LYMPHOCYTE# 0.7 X10e3 (1.0-3.5); LYMPHOCYTE% 12.8 % (17.0-45.0); MEAN CELL VOLUME 87.4 FL (83-96); MONOCYTE# 0.3 X10e3 (0-1.0); MONOCYTE% 5.1 % (3.0-12.0); NEUTROPHIL# 4.6 X10e3 (1.5-7.1); NEUTROPHIL% 79.7 % (40-75); PLATELET COUNT 112 X10e3 (140-420); RED BLOOD COUNT 3.07 X10e (3.90-5.30); RED CELL DISTRIBUTION WIDTH 15.8 % (11.0-15.5); WHITE BLOOD COUNT 5.8 X10e3 (4.0-10.5)
[2016-12-06 05:55] LABS: BUN/CREATININE RATIO 17.5; CALCIUM SERUM 7.5 mg/dL (8.4-10.2); CREATININE SERUM 0.4 mg/dL (0.6-1.4); GLOM FILT RATE Estimated 152.1 mL/min (>60); MAGNESIUM 1.9 mg/dL (1.6-3.0); PHOSPHOROUS 2.7 mg/dL (2.5-4.6); POTASSIUM 3.8 mmol/L (3.5-5.1)
[2016-12-06 06:04] LABS: FOLATE (FOLIC ACID) >23.6 ng/mL (>5.8)
[2016-12-06 09:52] LABS: ARTERIAL BLD GAS O2 SATURATION 99.8 % (90.0-100.0); ARTERIAL BLOOD GAS CARBOXY HB 0.4 %sat (0.0-9.0); ARTERIAL BLOOD GAS HCO3 22.4 mmol/L; ARTERIAL BLOOD GAS PCO2 37.6 mmHg (35.0-45.0); ARTERIAL BLOOD GAS pH 7.383 (7.350-7.450)
[2016-12-06 09:53] LABS: ARTERIAL BLOOD GAS ALLEN TEST NORMAL; ARTERIAL BLOOD GAS ART SITE LEFT RADIAL; ARTERIAL BLOOD GAS DELIVERY VENT; ARTERIAL BLOOD GAS MET HB 0.6 %sat (0.0-2.0); ARTERIAL BLOOD GAS VENT MODE CPAP; ARTERIAL DRAW? YES
[2016-12-06 14:06] LABS: CALCIUM SERUM 8.2 mg/dL (8.4-10.2); CREATININE SERUM 0.5 mg/dL (0.6-1.4); GLOM FILT RATE Estimated 141.3 mL/min (>60); MAGNESIUM 2.4 mg/dL (1.6-3.0); PHOSPHOROUS 2.9 mg/dL (2.5-4.6); POTASSIUM 3.7 mmol/L (3.5-5.1)
[2016-12-06 21:51] LABS: ARTERIAL BLD GAS O2 SATURATION 97.7 % (90.0-100.0); ARTERIAL BLOOD GAS CARBOXY HB 0.9 %sat (0.0-9.0); ARTERIAL BLOOD GAS HCO3 25.9 mmol/L; ARTERIAL BLOOD GAS MET HB 1.2 %sat (0.0-2.0); ARTERIAL BLOOD GAS pH 7.531 (7.350-7.450)
[2016-12-06 21:52] LABS: ARTERIAL BLOOD GAS ALLEN TEST NORMAL; ARTERIAL BLOOD GAS ART SITE LEFT RADIAL; ARTERIAL DRAW? YES
[2016-12-06 21:53] LABS: ARTERIAL BLOOD GAS DELIVERY HIGH FLOW
[2016-12-07 04:04] LABS: BASOPHIL% 0.2 % (0-2.5); EOSINOPHIL# 0.1 X10e3 (0-0.7); EOSINOPHIL% 0.9 % (0.0-7.0); HEMATOCRIT 27.5 % (35.0-45.0); HEMOGLOBIN 8.8 gm/dL (12.0-16.0); LYMPHOCYTE# 0.9 X10e3 (1.0-3.5); LYMPHOCYTE% 13.6 % (17.0-45.0); MEAN CELL VOLUME 86.5 FL (83-96); MEAN CORPUSCULAR HEMOGLOBIN 27.5 PG (28-34); MEAN CORPUSCULAR HGB CONC 31.9 g/dL (30-36); MEAN PLATELET VOLUME 9.3 FL (6.5-11.5); MONOCYTE# 0.5 X10e3 (0-1.0); MONOCYTE% 7.1 % (3.0-12.0); NEUTROPHIL% 78.2 % (40-75); PLATELET COUNT 128 X10e3 (140-420); RED BLOOD COUNT 3.18 X10e (3.90-5.30); RED CELL DISTRIBUTION WIDTH 15.3 % (11.0-15.5); WHITE BLOOD COUNT 6.4 X10e3 (4.0-10.5)
[2016-12-07 04:05] LABS: DIFF IND NO
[2016-12-07 04:24] LABS: ALBUMIN SERUM 2.4 g/dL (3.5-5.0); BUN/CREATININE RATIO 13.33; CREATININE SERUM 0.6 mg/dL (0.6-1.4); GLOM FILT RATE Estimated 133.1 mL/min (>60); MAGNESIUM 1.7 mg/dL (1.6-3.0); PHOSPHOROUS 3.2 mg/dL (2.5-4.6); POTASSIUM 3.2 mmol/L (3.5-5.1)
[2016-12-08 03:53] LABS: ARTERIAL BLD GAS O2 SATURATION 98.5 % (90.0-100.0); ARTERIAL BLOOD GAS CARBOXY HB 0.4 %sat (0.0-9.0); ARTERIAL BLOOD GAS HCO3 23.9 mmol/L; ARTERIAL BLOOD GAS MET HB 0.9 %sat (0.0-2.0); ARTERIAL BLOOD GAS PCO2 36.3 mmHg (35.0-45.0); ARTERIAL BLOOD GAS pH 7.427 (7.350-7.450)
[2016-12-08 03:56] LABS: ARTERIAL BLOOD GAS ALLEN TEST NORMAL; ARTERIAL BLOOD GAS ART SITE RIGHT RADIAL; ARTERIAL BLOOD GAS DELIVERY VENT; ARTERIAL BLOOD GAS VENT MODE AC; ARTERIAL DRAW? YES
[2016-12-08 05:36] LABS: BASOPHIL% 0.3 % (0-2.5); EOSINOPHIL# 0.1 X10e3 (0-0.7); EOSINOPHIL% 0.9 % (0.0-7.0); HEMATOCRIT 27.6 % (35.0-45.0); HEMOGLOBIN 8.9 gm/dL (12.0-16.0); LYMPHOCYTE# 1.1 X10e3 (1.0-3.5); LYMPHOCYTE% 9.9 % (17.0-45.0); MEAN CELL VOLUME 86.1 FL (83-96); MEAN CORPUSCULAR HEMOGLOBIN 27.7 PG (28-34); MEAN CORPUSCULAR HGB CONC 32.2 g/dL (30-36); MEAN PLATELET VOLUME 9.4 FL (6.5-11.5); MONOCYTE# 0.9 X10e3 (0-1.0); MONOCYTE% 8.1 % (3.0-12.0); NEUTROPHIL# 8.6 X10e3 (1.5-7.1); NEUTROPHIL% 80.8 % (40-75); PLATELET COUNT 143 X10e3 (140-420); RED CELL DISTRIBUTION WIDTH 15.1 % (11.0-15.5)
[2016-12-08 05:37] LABS: WHITE BLOOD COUNT 10.6 X10e3 (4.0-10.5)
[2016-12-08 05:38] LABS: DIFF IND YES
[2016-12-08 06:12] LABS: CALCIUM SERUM 8.3 mg/dL (8.4-10.2); CREATININE SERUM 0.5 mg/dL (0.6-1.4); GLOM FILT RATE Estimated 141.3 mL/min (>60); MAGNESIUM 1.6 mg/dL (1.6-3.0); PHOSPHOROUS 3.3 mg/dL (2.5-4.6)
[2016-12-08 06:25] LABS: ANISOCYTOSIS SL; PLATELET ESTIMATE NORMAL (NORMAL); SCHISTOCYTES PRESENT
[2016-12-09 04:58] LABS: BASOPHIL% 0.2 % (0-2.5); EOSINOPHIL# 0.1 X10e3 (0-0.7); EOSINOPHIL% 0.4 % (0.0-7.0); HEMATOCRIT 29.1 % (35.0-45.0); HEMOGLOBIN 9.2 gm/dL (12.0-16.0); LYMPHOCYTE# 1.4 X10e3 (1.0-3.5); LYMPHOCYTE% 9.1 % (17.0-45.0); MEAN CELL VOLUME 85.6 FL (83-96); MEAN CORPUSCULAR HGB CONC 31.5 g/dL (30-36); MEAN PLATELET VOLUME 9.7 FL (6.5-11.5); MONOCYTE# 1.4 X10e3 (0-1.0); MONOCYTE% 8.9 % (3.0-12.0); NEUTROPHIL# 12.5 X10e3 (1.5-7.1); NEUTROPHIL% 81.4 % (40-75); PLATELET COUNT 174 X10e3 (140-420); RED CELL DISTRIBUTION WIDTH 15.4 % (11.0-15.5); WHITE BLOOD COUNT 15.4 X10e3 (4.0-10.5)
[2016-12-09 05:00] LABS: DIFF IND NO
[2016-12-09 06:55] LABS: BUN/CREATININE RATIO 17.14; CALCIUM SERUM 8.1 mg/dL (8.4-10.2); CREATININE SERUM 0.7 mg/dL (0.6-1.4); GLOM FILT RATE Estimated 126.5 mL/min (>60); MAGNESIUM 1.8 mg/dL (1.6-3.0); PHOSPHOROUS 4.3 mg/dL (2.5-4.6); POTASSIUM 4.1 mmol/L (3.5-5.1)
== END 2016-12-09 21:00 | DRG 871 ==
LOC: CED 11:21 → CEDOF 13:04 → C3A PCU 16:36 → CICCU3 19:05
PROVIDERS: Emergency Medicine; Internal Medicine; Internal Medicine Nephrology; Internal Medicine Pulmonary Disease
PROC: 05H533Z Insertion of Infusion Device into Right Subclavian Vein, Percutaneous Approach (ICD-10-PCS; principal; 2016-12-03)
PROC: 5A1945Z Respiratory Ventilation, 24-96 Consecutive Hours (ICD-10-PCS; 2016-12-03)
PROC: 0BH17EZ Insertion of Endotracheal Airway into Trachea, Via Natural or Artificial Opening (ICD-10-PCS; 2016-12-03)
PROC: 0W9930Z Drainage of Right Pleural Cavity with Drainage Device, Percutaneous Approach (ICD-10-PCS; 2016-12-04)
PROC: 0BH18EZ Insertion of Endotracheal Airway into Trachea, Via Natural or Artificial Opening Endoscopic (ICD-10-PCS; 2016-12-07)
PROC: 5A1945Z Respiratory Ventilation, 24-96 Consecutive Hours (ICD-10-PCS; 2016-12-07)
PROC: 0BC38ZZ Extirpation of Matter from Right Main Bronchus, Via Natural or Artificial Opening Endoscopic (ICD-10-PCS; 2016-12-07)
PROC: 0BC88ZZ Extirpation of Matter from Left Upper Lobe Bronchus, Via Natural or Artificial Opening Endoscopic (ICD-10-PCS; 2016-12-07)
PROC: 0BCB8ZZ Extirpation of Matter from Left Lower Lobe Bronchus, Via Natural or Artificial Opening Endoscopic (ICD-10-PCS; 2016-12-07)
PROC: 0BC98ZZ Extirpation of Matter from Lingula Bronchus, Via Natural or Artificial Opening Endoscopic (ICD-10-PCS; 2016-12-07)
PROC: 0BC78ZZ Extirpation of Matter from Left Main Bronchus, Via Natural or Artificial Opening Endoscopic (ICD-10-PCS; 2016-12-07)
PROC: 0BC68ZZ Extirpation of Matter from Right Lower Lobe Bronchus, Via Natural or Artificial Opening Endoscopic (ICD-10-PCS; 2016-12-07)
PROC: 0BC58ZZ Extirpation of Matter from Right Middle Lobe Bronchus, Via Natural or Artificial Opening Endoscopic (ICD-10-PCS; 2016-12-07)
DX: A41.9 Sepsis, unspecified organism (principal); J96.01 Acute respiratory failure with hypoxia; E41 Nutritional marasmus; G92 Toxic encephalopathy; N17.9 Acute kidney failure, unspecified; J14 Pneumonia due to Hemophilus influenzae; T17.590A Other foreign object in bronchus causing asphyxiation, initial encounter; E87.2 Acidosis; Z68.1 Body mass index [BMI] 19.9 or less, adult; N39.0 Urinary tract infection, site not specified; J93.9 Pneumothorax, unspecified; G80.8 Other cerebral palsy; G40.909 Epilepsy, unspecified, not intractable, without status epilepticus; E87.5 Hyperkalemia; M43.6 Torticollis; Z98.2 Presence of cerebrospinal fluid drainage device; F79 Unspecified intellectual disabilities; M62.3 Immobility syndrome (paraplegic)
CPT/HCPCS: 31500; 36556; 36600; 51701; 71010; 74176; 80048; 80053; 80076; 80202; 81003; 82040; 82308; 82330; 82550; 82553; 82607; 82746; 82803; 82947; 83540; 83550; 83605; 83690; 83735; 84100; 84132; 84300; 84484; 84630; 85025; 85610; 85730; 87040; 87070; 87077; 87086; 87102; 87106; 87116; 87205; 87206; 87449; 87633; 87804; 87899; 89190; 93005; 94002; 94003; 94640; 94660; 94760; 94761; 96360; 96361; 99291; J0171; J0330; J0456; J0610; J0696; J1650; J1940; J2060; J2250; J2543; J3010; J3370; J3475; J7060